=== PATIENT | male | born 1945 | race Caucasian/White ===

== ENCOUNTER 2023-02-11 21:22 | Inpatient (IN) | payer OTHER ==
[2023-02-11] MEDS ORDERED: RACEPINEPHRINE IH SOL 2.25% 11.25 MG/0.5 ML VIAL NEB ONE ×2 (21:38→22:02)
[2023-02-11] MEDS ORDERED: MAGNESIUM SULFATE IN WATER 2 GM/50 ML IVPB IVPB ONE ×2 (21:38→21:45)
[2023-02-11] MEDS ORDERED: RAPID SEQUENCE INTUBATION KIT NR ONE (21:41)
[2023-02-11 21:43] LABS: VENOUS BASE EXCESS -19.6 mmol/L (-2-2)
[2023-02-11] MEDS ORDERED: CEFTRIAXONE 1 GM in DEXTROSE 5%-WATER - 50 ML IVPB ONE (21:44)
[2023-02-11] MEDS ORDERED: CEFTRIAXONE 1 GM/50 ML BAG ONE ×2 (21:44→22:27)
[2023-02-11] MEDS ORDERED: AZITHROMYCIN IVPB 500 MG/250 ML BAG IVPB ONE ×2 (21:44→22:28)
[2023-02-11 21:59] LABS: HEMATOCRIT 24.4 % (35.4-49); HEMOGLOBIN 8.1 GM/dL (11.7-16.9); MCH 30.3 pg (25.7-33.7); MCHC 33.4 g/dl (32.0-35.9); MEAN CELL VOLUME 90.7 fl (80-96); MEAN PLT VOLUME 8.9 fl (7.5-11.1); PLATELET COUNT 229 10^3/uL (134-434); RBC 2.69 M/mm3 (4.00-5.60)
[2023-02-11] MEDS ORDERED: PROPOFOL 1,000,000 MCG/100 ML VIAL ONE (21:59)
[2023-02-11 22:01] LABS: WHITE BLOOD COUNT 0.9 K/mm3 (4.0-10.0)
[2023-02-11] MEDS ORDERED: MAGNESIUM SULF 50% (8.12 MEQ/2 ML-1 GM VIAL) IVPB ONE ×2 (22:02)
[2023-02-11 22:09] LABS: CHLORIDE 116 mmol/L (98-107); SODIUM 142 mmol/L (136-145)
[2023-02-11 22:11] LABS: CALCIUM 7.4 mg/dL (8.5-10.1)
[2023-02-11 22:12] LABS: ALBUMIN 2.4 g/dl (3.4-5.0); CO2 10 mmol/L (21-32)
[2023-02-11 22:15] LABS: SGOT/AST 101 U/L (15-37); SGPT/ALT 43 U/L (13-61)
[2023-02-11] MEDS ORDERED: PROPOFOL 1,000,000 MCG/100 ML VIAL IVPB SCH (22:15)
[2023-02-11] MEDS ORDERED: PROPOFOL 200 MG/20 ML VIAL IVPUSH ONE (22:15)
[2023-02-11 22:17] LABS: BILIRUBIN,TOTAL 0.6 mg/dL (0.2-1)
[2023-02-11 22:18] LABS: ALK PHOS 76 U/L (45-117)
[2023-02-11 22:34] LABS: ANION GAP 15 MMOL/L (8-16); CREATININE 7.6 mg/dL (0.55-1.3); GLUCOSE,RANDOM 32 mg/dL (74-106); N-TERMINAL BNP 82463.1 pg/ml (5-450); POTASSIUM 6.4 mmol/L (3.5-5.1)
[2023-02-11 22:36] LABS: HEMATOCRIT 22.5 % (35.4-49); HEMOGLOBIN 7.3 GM/dL (11.7-16.9); MCHC 32.4 g/dl (32.0-35.9); MEAN CELL VOLUME 92.5 fl (80-96); MEAN PLT VOLUME 8.3 fl (7.5-11.1); PLATELET COUNT 201 10^3/uL (134-434); RBC 2.44 M/mm3 (4.00-5.60); RDW 16.1 % (11.9-15.9)
[2023-02-11 22:42] LABS: WHITE BLOOD COUNT 0.7 K/mm3 (4.0-10.0)
[2023-02-11] MEDS ORDERED: DEXTROSE 5%-0.45% SALINE 1,000 ML IV SCH (23:00)
[2023-02-11] MEDS ORDERED: PIPERACILLIN/TAZOB 4.5 GM 4.5 GM in DEXTROSE 5%-WATER 100 ML IVPB ONE (23:02)
[2023-02-11] MEDS: PROPOFOL 1,000,000 MCG/100 ML VIAL IVPB SCH (23:10)
[2023-02-11 23:14] LABS: ARTERIAL BLD GAS O2 SATURATION 98.3 % (95-98); ARTERIAL BLOOD GAS BASE EXCESS -22.8 mmol/L (-2-2); ARTERIAL BLOOD GAS PO2 195.2 mmHg (80-100)
[2023-02-11 23:18] LABS: ALLENS TEST POSITIVE
[2023-02-11 23:19] LABS: VENT RATE 26
[2023-02-11 23:20] LABS: VENT MODE P5V
[2023-02-11 23:21] LABS: ARTERIAL BLOOD GAS pH 6.878 (7.350-7.450)
[2023-02-11] MEDS ORDERED: SODIUM BICARBONATE 8.4% 50 MEQ/50 ML DISP.SYRIN IVPUSH ONE ×2 (23:25→23:26)
[2023-02-11] MEDS ORDERED: SODIUM BICARBONATE 8.4% 50 MEQ/50 ML DISP.SYRIN ONE (23:27)
[2023-02-11] MEDS ORDERED: DEXTROSE 5%-WATER - 1,000 ML with SODIUM BICARBONATE 8.4% - 150 MEQ IV SCH (23:34)
[2023-02-11 23:46] LABS: CHLORIDE 116 mmol/L (98-107); POTASSIUM 5.8 mmol/L (3.5-5.1); SODIUM 140 mmol/L (136-145)
[2023-02-11 23:48] LABS: ANION GAP 13 MMOL/L (8-16); CO2 11 mmol/L (21-32); MAGNESIUM 2.5 mg/dL (1.8-2.4)
[2023-02-11 23:50] LABS: GLUCOSE,RANDOM 222 mg/dL (74-106)
[2023-02-11 23:52] LABS: SGOT/AST 88 U/L (15-37); SGPT/ALT 37 U/L (13-61)
[2023-02-11 23:53] LABS: CHOLESTEROL 81 mg/dL (50-200); PHOSPHOROUS 8.5 mg/dL (2.5-4.9); TOT PROT 5.1 g/dl (6.4-8.2)
[2023-02-11 23:54] LABS: LDL CHOLESTEROL (ONLY SJRH) 27 mg/dL (5-100)
[2023-02-11 23:55] LABS: BILIRUBIN,TOTAL 0.5 mg/dL (0.2-1)
[2023-02-11 23:56] LABS: ALK PHOS 67 U/L (45-117); HDL CHOLESTEROL 44 mg/dL (40-60)
[2023-02-12 00:04] LABS: BLOOD UREA NITROGEN 129.8 mg/dL (7-18); CALCIUM 6.9 mg/dL (8.5-10.1); CREATININE 7.5 mg/dL (0.55-1.3); LACTIC ACID 3.4 mmol/L (0.4-2.0)
[2023-02-12] MEDS ORDERED: SODIUM CHLORIDE 0.9% 500 ML INFUS.BAG IV ONE ×3 (00:43→09:53)
[2023-02-12] MEDS ORDERED: DEXTROSE 50%-WATER 25 GM/50 ML DISP.SYRIN IVPUSH ONE (01:00)
[2023-02-12] MEDS ORDERED: INSULIN REGULAR HUMAN 100 UNITS/ML *VIAL IVPUSH ONE (01:00)
[2023-02-12] MEDS ORDERED: SODIUM BICARBONATE 8.4% 50 MEQ/50 ML DISP.SYRIN IVPUSH ONE ×2 (01:00→10:15)
[2023-02-12] MEDS ORDERED: CALCIUM GLUCONATE 10% - 1,000 MG/10 ML VIAL IVPB ONE (01:00)
[2023-02-12] MEDS ORDERED: VANCOMYCIN 1 GM in D5W (PRE-DOCKED) 1,000 MG/250 ML (RESTRICTED TO ID ONLY IVPB ONE (01:44)
[2023-02-12] MEDS ORDERED: FENTANYL NS IVPB 500 MCG/100 ML BAG IVPB ONE (01:48)
[2023-02-12] MEDS ORDERED: PIPERACILLIN/TAZOB 2.25 GM 2.25 GM in DEXTROSE 5%-WATER - 50 ML IVPB SCH (02:00)
[2023-02-12] MEDS ORDERED: VANCOMYCIN/WATER FOR INJ (PEG) 1,000 MG/200 ML BAG IVPB ONE (02:00)
[2023-02-12 02:18] LABS: EPI CELLS 3 /uL (0-25.1); HYALINE CASTS 1 /uL (0-3.1); URINE APPEARANCE CLEAR; URINE BACTERIA 59 /uL (0-1359); URINE BILIRUBIN NEGATIVE (NEGATIVE); URINE COLOR YELLOW; URINE GLUCOSE (UA) NEGATIVE (NEGATIVE); URINE KETONE NEGATIVE (NEGATIVE); URINE LEUK ESTERASE NEGATIVE (NEGATIVE); URINE NITRITE NEGATIVE (NEGATIVE); URINE PROTEIN 1+ (NEGATIVE); URINE RBC 62 /uL (0-23.9); URINE UROBILINOGEN 0.2 mg/dL (0.2-1.0); URINE WBC 35 /uL (0-25.8)
[2023-02-12] MEDS: FENTANYL NS IVPB 500 MCG/100 ML BAG IVPB SCH ×4 (02:31→22:01)
[2023-02-12 02:47] LABS: BASO % 0.1 % (0-2.0); EOS % 0.3 % (0-4.5); HEMATOCRIT 22.6 % (35.4-49); HEMOGLOBIN 7.4 GM/dL (11.7-16.9); LYMPH % 14.3 % (8-40); MCH 30.3 pg (25.7-33.7); MCHC 32.5 g/dl (32.0-35.9); MEAN CELL VOLUME 93.2 fl (80-96); MEAN PLT VOLUME 8.6 fl (7.5-11.1); MONO % 0.9 % (3.8-10.2); NEUT % 84.4 % (42.8-82.8); PLATELET COUNT 210 10^3/uL (134-434); RBC 2.43 M/mm3 (4.00-5.60); RDW 16.5 % (11.9-15.9)
[2023-02-12 02:53] LABS: WHITE BLOOD COUNT 1.3 K/mm3 (4.0-10.0)
[2023-02-12 02:57] LABS: ARTERIAL BLD GAS O2 SATURATION 94.6 % (95-98); ARTERIAL BLOOD GAS BASE EXCESS -20.7 mmol/L (-2-2); ARTERIAL BLOOD GAS PO2 145.6 mmHg (80-100)
[2023-02-12 02:59] LABS: ALLENS TEST POSITIVE
[2023-02-12 03:00] LABS: VENT MODE PSV
[2023-02-12 03:01] LABS: VENT RATE 29
[2023-02-12] MEDS: NOREPINEPHRINE BITARTRATE/D5W 8 MG/250 ML BAG IVPB SCH ×3 (03:05→21:09)
[2023-02-12 03:15] LABS: ARTERIAL BLOOD GAS pH < 6.717 (7.350-7.450)
[2023-02-12] MEDS ORDERED: SODIUM BICARBONATE 8.4% 50 MEQ/50 ML VIAL IVPUSH ONE ×2 (03:32)
[2023-02-12] MEDS ORDERED: SODIUM BICARBONATE 8.4% 50 MEQ/50 ML DISP.SYRIN ONE (03:32)
[2023-02-12 03:33] LABS: LACTIC ACID 3.4 mmol/L (0.4-2.0)
[2023-02-12] MEDS: ALBUTEROL SO4 0.083% IH SOL 2.5 MG/3 ML VIAL.NEB. NEB SCH ×5 (03:34→20:33)
[2023-02-12 03:55] LABS: ANISOCYTOSIS 2+; CORRECTED WBC 1.16 K/mm3; MACROCYTOSIS 0; OVALOCYTE 2+; TOXIC GRANULATION 2+
[2023-02-12 04:50] LABS: CHLORIDE 114 mmol/L (98-107); POTASSIUM 5.4 mmol/L (3.5-5.1); SODIUM 145 mmol/L (136-145)
[2023-02-12 04:52] LABS: ALBUMIN 1.7 g/dl (3.4-5.0)
[2023-02-12 04:53] LABS: ANION GAP 14 MMOL/L (8-16); CO2 17 mmol/L (21-32); GLUCOSE,RANDOM 154 mg/dL (74-106); MAGNESIUM 2.4 mg/dL (1.8-2.4)
[2023-02-12 04:56] LABS: SGOT/AST 114 U/L (15-37); SGPT/ALT 41 U/L (13-61)
[2023-02-12 04:57] LABS: TOT PROT 4.4 g/dl (6.4-8.2)
[2023-02-12 04:58] LABS: BILIRUBIN,TOTAL 0.5 mg/dL (0.2-1)
[2023-02-12 04:59] LABS: ALK PHOS 61 U/L (45-117)
[2023-02-12 05:07] LABS: ARTERIAL BLD GAS O2 SATURATION 98.9 % (95-98); ARTERIAL BLOOD GAS BASE EXCESS -14.9 mmol/L (-2-2); ARTERIAL BLOOD GAS PO2 209.6 mmHg (80-100)
[2023-02-12 05:09] LABS: ALLENS TEST POSITIVE
[2023-02-12 05:10] LABS: VENT MODE V-A/C; VENT RATE 35
[2023-02-12 05:20] LABS: BLOOD UREA NITROGEN 119.6 mg/dL (7-18); CALCIUM 6.9 mg/dL (8.5-10.1); CREATININE 7.9 mg/dL (0.55-1.3)
[2023-02-12 05:35] LABS: PHOSPHOROUS > 9.0 mg/dL (2.5-4.9)
[2023-02-12] MEDS ORDERED: DEXTROSE 50%-WATER 25 GM/50 ML DISP.SYRIN ONE ×2 (06:03→08:46)
[2023-02-12 06:17] LABS: ARTERIAL BLOOD GAS pH 7.039 (7.350-7.450)
[2023-02-12] MEDS ORDERED: DEXTROSE 50%-WATER - 25 GM/50 ML VIAL IVPUSH ONE ×2 (06:22→08:27)
[2023-02-12] MEDS: HEPARIN NA (PORCINE) 5,000 UNITS/ML 1ML VIAL SQ SCH ×3 (06:46→21:08)
[2023-02-12 07:24] LABS: INR 1.51 (0.83-1.09); PROTHROMBIN TIME (PATIENT) 17.4 SEC (9.7-13.0)
[2023-02-12 07:27] LABS: ACTIVATED PTT 32.5 SECONDS (25.2-36.5)
[2023-02-12 07:41] LABS: CHLORIDE 112 mmol/L (98-107); POTASSIUM 5.2 mmol/L (3.5-5.1); SODIUM 146 mmol/L (136-145)
[2023-02-12 07:43] LABS: ALBUMIN 1.7 g/dl (3.4-5.0)
[2023-02-12 07:44] LABS: ANION GAP 14 MMOL/L (8-16); CO2 20 mmol/L (21-32); GLUCOSE,RANDOM 50 mg/dL (74-106)
[2023-02-12 07:46] LABS: SGOT/AST 236 U/L (15-37)
[2023-02-12 07:47] LABS: SGPT/ALT 78 U/L (13-61)
[2023-02-12 07:48] LABS: BILIRUBIN,TOTAL 0.6 mg/dL (0.2-1); TOT PROT 4.5 g/dl (6.4-8.2)
[2023-02-12 07:49] LABS: ALK PHOS 66 U/L (45-117)
[2023-02-12 08:03] LABS: BLOOD UREA NITROGEN 118.6 mg/dL (7-18); CALCIUM 6.5 mg/dL (8.5-10.1); CREATININE 7.7 mg/dL (0.55-1.3); LACTIC ACID 4.7 mmol/L (0.4-2.0)
[2023-02-12 08:07] LABS: HEMATOCRIT 20.7 % (35.4-49); MCH 30.6 pg (25.7-33.7); MCHC 33.6 g/dl (32.0-35.9); MEAN PLT VOLUME 8.8 fl (7.5-11.1); PLATELET COUNT 147 10^3/uL (134-434); RBC 2.27 M/mm3 (4.00-5.60); RDW 15.8 % (11.9-15.9)
[2023-02-12 08:10] LABS: HEMOGLOBIN 6.9 GM/dL (11.7-16.9); WHITE BLOOD COUNT 0.9 K/mm3 (4.0-10.0)
[2023-02-12] MEDS: DEXTROSE 5%-WATER - 1,000 ML with SODIUM BICARBONATE 8.4% - 150 MEQ IV SCH ×3 (08:40→22:03)
[2023-02-12 10:01] LABS: ANISOCYTOSIS 0; MACROCYTOSIS 1+; ROULEAU 2+
[2023-02-12] MEDS: MUPIROCIN 2% TOPICAL OINTMENT FOR DECOLONIZATION NS SCH ×2 (10:04→21:07)
[2023-02-12] MEDS: SODIUM BICARBONATE 8.4% 50 MEQ/50 ML DISP.SYRIN IVPUSH SCH ×3 (10:05→21:04)
[2023-02-12] MEDS: PIPERACILLIN/TAZOB 2.25 GM 2.25 GM in DEXTROSE 5%-WATER - 50 ML IVPB SCH ×2 (10:06→18:49)
[2023-02-12] MEDS: PANTOPRAZOLE SODIUM 40 MG VIAL IVPUSH SCH (10:06)
[2023-02-12] MEDS: SODIUM CHLORIDE 1,000 ML IV SCH ×2 (10:37→11:50)
[2023-02-12] MEDS: PROPOFOL 1,000,000 MCG/100 ML VIAL IVPB SCH ×2 (10:47→16:59)
[2023-02-12 12:02] LABS: ALLENS TEST POSITIVE; ARTERIAL BLD GAS O2 SATURATION 99.4 % (95-98); ARTERIAL BLOOD GAS BASE EXCESS -5.1 mmol/L (-2-2); ARTERIAL BLOOD GAS PO2 224.8 mmHg (80-100)
[2023-02-12 12:03] LABS: VENT MODE A/C; VENT RATE 35%
[2023-02-12] MEDS: AZITHROMYCIN IVPB 500 MG/250 ML BAG IVPB SCH (13:40)
[2023-02-12] MEDS: CHLORHEXIDINE GLUCONATE 4% CLEANSER FOR DECOLONIZATION TP SCH (21:07)
[2023-02-12 21:30] LABS: ARTERIAL BLD GAS O2 SATURATION 97.5 % (95-98); ARTERIAL BLOOD GAS BASE EXCESS -2.8 mmol/L (-2-2); ARTERIAL BLOOD GAS PO2 119.3 mmHg (80-100); ARTERIAL BLOOD GAS pH 7.224 (7.350-7.450)
[2023-02-12 21:42] LABS: ALLENS TEST POSITIVE; VENT MODE A/C; VENT RATE 35
[2023-02-13] MEDS: ALBUTEROL SO4 0.083% IH SOL 2.5 MG/3 ML VIAL.NEB. NEB SCH ×6 (00:05→20:40)
[2023-02-13] MEDS: PIPERACILLIN/TAZOB 2.25 GM 2.25 GM in DEXTROSE 5%-WATER - 50 ML IVPB SCH ×3 (02:08→17:13)
[2023-02-13] MEDS: FENTANYL NS IVPB 500 MCG/100 ML BAG IVPB SCH ×2 (03:31→06:07)
[2023-02-13] MEDS: SODIUM BICARBONATE 8.4% 50 MEQ/50 ML DISP.SYRIN IVPUSH SCH ×2 (03:31→11:02)
[2023-02-13] MEDS: HEPARIN NA (PORCINE) 5,000 UNITS/ML 1ML VIAL SQ SCH ×3 (06:07→21:22)
[2023-02-13 06:14] LABS: ALLENS TEST POSITIVE; ARTERIAL BLD GAS O2 SATURATION 97.5 % (95-98); ARTERIAL BLOOD GAS BASE EXCESS 1.9 mmol/L (-2-2); ARTERIAL BLOOD GAS pH 7.289 (7.350-7.450)
[2023-02-13 06:15] LABS: VENT MODE A/C; VENT RATE 35
[2023-02-13] MEDS: DEXTROSE 5%-WATER - 1,000 ML with SODIUM BICARBONATE 8.4% - 150 MEQ IV SCH ×4 (06:16→12:10)
[2023-02-13] MEDS: PROPOFOL 1,000,000 MCG/100 ML VIAL IVPB SCH ×2 (06:16→12:09)
[2023-02-13] MEDS: NOREPINEPHRINE BITARTRATE/D5W 8 MG/250 ML BAG IVPB SCH (06:16)
[2023-02-13 07:03] LABS: HEMATOCRIT 20.2 % (35.4-49); HEMOGLOBIN 7.1 GM/dL (11.7-16.9); MCH 30.7 pg (25.7-33.7); MCHC 35.2 g/dl (32.0-35.9); MEAN CELL VOLUME 87.2 fl (80-96); MEAN PLT VOLUME 9.2 fl (7.5-11.1); PLATELET COUNT 72 10^3/uL (134-434); RBC 2.31 M/mm3 (4.00-5.60); RDW 15.6 % (11.9-15.9); WHITE BLOOD COUNT 9.6 K/mm3 (4.0-10.0)
[2023-02-13 07:25] LABS: CHLORIDE 101 mmol/L (98-107); POTASSIUM 4.6 mmol/L (3.5-5.1); SODIUM 144 mmol/L (136-145)
[2023-02-13 07:28] LABS: ALBUMIN 1.4 g/dl (3.4-5.0); ANION GAP 10 MMOL/L (8-16); CO2 33 mmol/L (21-32); GLUCOSE,RANDOM 151 mg/dL (74-106); MAGNESIUM 1.9 mg/dL (1.8-2.4)
[2023-02-13 07:31] LABS: CREATININE 7.3 mg/dL (0.55-1.3); SGOT/AST 211 U/L (15-37); SGPT/ALT 88 U/L (13-61)
[2023-02-13 07:32] LABS: BILIRUBIN,TOTAL 0.5 mg/dL (0.2-1)
[2023-02-13 07:33] LABS: TOT PROT 4.3 g/dl (6.4-8.2)
[2023-02-13 07:34] LABS: ALK PHOS 41 U/L (45-117)
[2023-02-13 08:16] LABS: BLOOD UREA NITROGEN 115.5 mg/dL (7-18); CALCIUM 6.3 mg/dL (8.5-10.1); PHOSPHOROUS 9.9 mg/dL (2.5-4.9)
[2023-02-13 08:46] LABS: ANISOCYTOSIS 1+; MACROCYTOSIS 0
[2023-02-13] MEDS: PANTOPRAZOLE SODIUM 40 MG VIAL IVPUSH SCH (11:02)
[2023-02-13] MEDS: MUPIROCIN 2% TOPICAL OINTMENT FOR DECOLONIZATION NS SCH ×2 (11:03→21:23)
[2023-02-13] MEDS: AZITHROMYCIN IVPB 500 MG/250 ML BAG IVPB SCH (11:03)
[2023-02-13 12:30] LABS: INR 1.4 (0.83-1.09); PROTHROMBIN TIME (PATIENT) 16.2 SEC (9.7-13.0)
[2023-02-13 12:33] LABS: ACTIVATED PTT 30.7 SECONDS (25.2-36.5)
[2023-02-13 15:27] VITALS: BMI 25.7
[2023-02-13] MEDS: SODIUM BICARBONATE 8.4% - 150 MEQ in DEXTROSE 5%-WATER - 1,000 ML IV SCH (17:13)
[2023-02-13] MEDS: CHLORHEXIDINE GLUCONATE 4% CLEANSER FOR DECOLONIZATION TP SCH (21:23)
[2023-02-14] MEDS: ALBUTEROL SO4 0.083% IH SOL 2.5 MG/3 ML VIAL.NEB. NEB SCH ×4 (00:08→10:59)
[2023-02-14] MEDS: PIPERACILLIN/TAZOB 2.25 GM 2.25 GM in DEXTROSE 5%-WATER - 50 ML IVPB SCH ×2 (01:11→10:16)
[2023-02-14] MEDS: HEPARIN NA (PORCINE) 5,000 UNITS/ML 1ML VIAL SQ SCH (06:22)
[2023-02-14] MEDS: PROPOFOL 1,000,000 MCG/100 ML VIAL IVPB SCH (06:23)
[2023-02-14] MEDS: FENTANYL NS IVPB 500 MCG/100 ML BAG IVPB SCH ×3 (06:23→07:01)
[2023-02-14] MEDS: SODIUM BICARBONATE 8.4% - 150 MEQ in DEXTROSE 5%-WATER - 1,000 ML IV SCH ×2 (06:24)
[2023-02-14] MEDS: NOREPINEPHRINE BITARTRATE/D5W 8 MG/250 ML BAG IVPB SCH (06:25)
[2023-02-14 06:56] LABS: HEMATOCRIT 18.3 % (35.4-49); MCH 30.1 pg (25.7-33.7); MCHC 34.4 g/dl (32.0-35.9); MEAN CELL VOLUME 87.5 fl (80-96); MEAN PLT VOLUME 9.6 fl (7.5-11.1); PLATELET COUNT 52 10^3/uL (134-434); RBC 2.09 M/mm3 (4.00-5.60); RDW 15.7 % (11.9-15.9); WHITE BLOOD COUNT 14.5 K/mm3 (4.0-10.0)
[2023-02-14 07:03] LABS: HEMOGLOBIN 6.3 GM/dL (11.7-16.9)
[2023-02-14 07:18] LABS: CHLORIDE 91 mmol/L (98-107); POTASSIUM 4.5 mmol/L (3.5-5.1); SODIUM 140 mmol/L (136-145)
[2023-02-14 07:22] LABS: ALBUMIN 1.4 g/dl (3.4-5.0); ANION GAP 9 MMOL/L (8-16); CO2 41 mmol/L (21-32); GLUCOSE,RANDOM 145 mg/dL (74-106); MAGNESIUM 2.2 mg/dL (1.8-2.4)
[2023-02-14 07:25] LABS: CREATININE 7.3 mg/dL (0.55-1.3); SGOT/AST 111 U/L (15-37)
[2023-02-14 07:26] LABS: SGPT/ALT 69 U/L (13-61)
[2023-02-14 07:27] LABS: BILIRUBIN,TOTAL 0.7 mg/dL (0.2-1); TOT PROT 4.3 g/dl (6.4-8.2)
[2023-02-14 07:33] LABS: ALK PHOS 77 U/L (45-117); BLOOD UREA NITROGEN 118.8 mg/dL (7-18); CALCIUM 5.5 mg/dL (8.5-10.1)
[2023-02-14 07:48] LABS: PHOSPHOROUS 9.6 mg/dL (2.5-4.9)
[2023-02-14 09:09] LABS: ANISOCYTOSIS 0; MACROCYTOSIS 0
[2023-02-14] MEDS: PANTOPRAZOLE SODIUM 40 MG VIAL IVPUSH SCH (10:16)
[2023-02-14] MEDS: AZITHROMYCIN IVPB 500 MG/250 ML BAG IVPB SCH (10:16)
[2023-02-14] MEDS: MUPIROCIN 2% TOPICAL OINTMENT FOR DECOLONIZATION NS SCH ×2 (10:17→21:21)
[2023-02-14] MEDS ORDERED: CALCIUM GLUCONATE 10% - 1,000 MG/10 ML VIAL IVPUSH ONE (11:14)
[2023-02-14] MEDS ORDERED: ALBUTEROL SO4 0.083% IH SOL 2.5 MG/3 ML VIAL.NEB. NEB PRN (12:40)
[2023-02-14] MEDS: ACETAMINOPHEN 1000 MG/100 ML BAG IVPB PRN ×2 (12:56→21:25)
[2023-02-14 14:57] LABS: HEMATOCRIT 22.1 % (35.4-49); HEMOGLOBIN 7.6 GM/dL (11.7-16.9); MCH 29.6 pg (25.7-33.7); MCHC 34.3 g/dl (32.0-35.9); MEAN CELL VOLUME 86.4 fl (80-96); MEAN PLT VOLUME 10.1 fl (7.5-11.1); PLATELET COUNT 47 10^3/uL (134-434); RBC 2.55 M/mm3 (4.00-5.60); RDW 16.1 % (11.9-15.9); WHITE BLOOD COUNT 15.9 K/mm3 (4.0-10.0)
[2023-02-14] MEDS: ALBUTEROL SO4 2.5/IPRATROPIUM 0.5 INH SOL 3 ML VIAL.NEB. NEB SCH ×2 (15:00→20:30)
[2023-02-14] MEDS: CEFTRIAXONE 2 GM in DEXTROSE 5%-WATER 100 ML IVPB SCH (15:34)
[2023-02-14] MEDS ORDERED: ALBUTEROL SO4 0.083% IH SOL 2.5 MG/3 ML VIAL.NEB. NEB SCH (16:00)
[2023-02-14 18:01] LABS: ANISOCYTOSIS 2+; MACROCYTOSIS 0; OVALOCYTE 1+; TOXIC GRANULATION 1+
[2023-02-14 21:08] LABS: ANTIGLOMERULAR BASEMENT MEN.AB <0.2 units (0.0-0.9)
[2023-02-14] MEDS: CHLORHEXIDINE GLUCONATE 4% CLEANSER FOR DECOLONIZATION TP SCH (21:21)
[2023-02-15 07:22] LABS: HEMATOCRIT 23.5 % (35.4-49); HEMOGLOBIN 8.1 GM/dL (11.7-16.9); MCHC 34.6 g/dl (32.0-35.9); MEAN CELL VOLUME 86.7 fl (80-96); MEAN PLT VOLUME 9.8 fl (7.5-11.1); PLATELET COUNT 45 10^3/uL (134-434); RBC 2.71 M/mm3 (4.00-5.60); RDW 16.4 % (11.9-15.9); WHITE BLOOD COUNT 16.1 K/mm3 (4.0-10.0)
[2023-02-15 07:52] LABS: CHLORIDE 92 mmol/L (98-107); POTASSIUM 4.5 mmol/L (3.5-5.1); SODIUM 143 mmol/L (136-145)
[2023-02-15 07:55] LABS: ANION GAP 15 MMOL/L (8-16); CO2 36 mmol/L (21-32); GLUCOSE,RANDOM 74 mg/dL (74-106); MAGNESIUM 2.1 mg/dL (1.8-2.4)
[2023-02-15 07:59] LABS: ALBUMIN 1.5 g/dl (3.4-5.0); SGOT/AST 80 U/L (15-37); SGPT/ALT 58 U/L (13-61)
[2023-02-15 08:01] LABS: BILIRUBIN,TOTAL 0.9 mg/dL (0.2-1); TOT PROT 4.7 g/dl (6.4-8.2)
[2023-02-15] MEDS: ALBUTEROL SO4 2.5/IPRATROPIUM 0.5 INH SOL 3 ML VIAL.NEB. NEB SCH ×4 (08:26→20:20)
[2023-02-15 08:32] LABS: ALK PHOS 174 U/L (45-117); BLOOD UREA NITROGEN 133.4 mg/dL (7-18); CALCIUM 5.8 mg/dL (8.5-10.1); CREATININE 7.9 mg/dL (0.55-1.3); PHOSPHOROUS 8.8 mg/dL (2.5-4.9)
[2023-02-15] MEDS ORDERED: CALCIUM GLUCONATE 10% - 1,000 MG/10 ML VIAL IVPUSH ONE ×2 (08:36→13:54)
[2023-02-15 09:07] LABS: ANISOCYTOSIS 0; MACROCYTOSIS 0
[2023-02-15] MEDS: TAMSULOSIN HCL 0.4 MG CAP PO SCH ×2 (09:41→22:12)
[2023-02-15] MEDS: FINASTERIDE 5 MG TABLET (FP) PO SCH (09:41)
[2023-02-15] MEDS: CEFTRIAXONE 2 GM in DEXTROSE 5%-WATER 100 ML IVPB SCH (09:42)
[2023-02-15] MEDS: AZITHROMYCIN IVPB 500 MG/250 ML BAG IVPB SCH (09:42)
[2023-02-15] MEDS: PANTOPRAZOLE SODIUM 40 MG VIAL IVPUSH SCH (09:42)
[2023-02-15] MEDS ORDERED: amLODIPine BESYLATE 5 MG TABLET (FP) PO SCH (11:05)
[2023-02-15] MEDS ORDERED: amLODIPine BESYLATE 5 MG TABLET (FP) PO ONE (11:17)
[2023-02-15] MEDS: MUPIROCIN 2% TOPICAL OINTMENT FOR DECOLONIZATION NS SCH ×2 (11:26→22:15)
[2023-02-15] MEDS ORDERED: CALCIUM GLUCONATE 10% - 1,000 MG/10 ML VIAL IVPB ONE (12:20)
[2023-02-15] MEDS ORDERED: CALCIUM CHLORIDE 10% 1 GM/10 ML *VIAL IVPUSH ONE (12:20)
[2023-02-15 16:08] LABS: ATYPICAL pANCA <1:20 titer (Neg:<1:20); C-ANCA <1:20 titer (Neg:<1:20)
[2023-02-15] MEDS: CHLORHEXIDINE GLUCONATE 4% CLEANSER FOR DECOLONIZATION TP SCH (22:15)
[2023-02-16] MEDS: ALBUTEROL SO4 2.5/IPRATROPIUM 0.5 INH SOL 3 ML VIAL.NEB. NEB SCH ×4 (07:20→21:39)
[2023-02-16 07:44] LABS: HEMATOCRIT 23.9 % (35.4-49); MCH 28.9 pg (25.7-33.7); MCHC 33.4 g/dl (32.0-35.9); MEAN CELL VOLUME 86.6 fl (80-96); MEAN PLT VOLUME 9.8 fl (7.5-11.1); PLATELET COUNT 47 10^3/uL (134-434); RBC 2.76 M/mm3 (4.00-5.60); RDW 15.7 % (11.9-15.9); WHITE BLOOD COUNT 10.1 K/mm3 (4.0-10.0)
[2023-02-16 08:08] LABS: CHLORIDE 91 mmol/L (98-107); POTASSIUM 4.1 mmol/L (3.5-5.1); SODIUM 138 mmol/L (136-145)
[2023-02-16 08:10] LABS: ALBUMIN 1.5 g/dl (3.4-5.0); ANION GAP 14 MMOL/L (8-16); CO2 33 mmol/L (21-32); GLUCOSE,RANDOM 86 mg/dL (74-106); MAGNESIUM 2.3 mg/dL (1.8-2.4)
[2023-02-16 08:14] LABS: SGOT/AST 55 U/L (15-37); SGPT/ALT 53 U/L (13-61)
[2023-02-16 08:16] LABS: BILIRUBIN,TOTAL 0.8 mg/dL (0.2-1); TOT PROT 4.7 g/dl (6.4-8.2)
[2023-02-16 08:17] LABS: ALK PHOS 166 U/L (45-117)
[2023-02-16 08:31] LABS: BLOOD UREA NITROGEN 144.8 mg/dL (7-18); CALCIUM 6.7 mg/dL (8.5-10.1)
[2023-02-16 08:38] LABS: PHOSPHOROUS 9.4 mg/dL (2.5-4.9)
[2023-02-16 09:06] LABS: ANISOCYTOSIS 0; MACROCYTOSIS 0
[2023-02-16] MEDS: CEFTRIAXONE 2 GM in DEXTROSE 5%-WATER 100 ML IVPB SCH (09:06)
[2023-02-16] MEDS: TAMSULOSIN HCL 0.4 MG CAP PO SCH ×2 (09:22→21:20)
[2023-02-16] MEDS: PANTOPRAZOLE SODIUM 40 MG VIAL IVPUSH SCH (09:22)
[2023-02-16] MEDS: amLODIPine BESYLATE 5 MG TABLET (FP) PO SCH (09:22)
[2023-02-16] MEDS: FINASTERIDE 5 MG TABLET (FP) PO SCH (09:23)
[2023-02-16] MEDS ORDERED: amLODIPine BESYLATE 5 MG TABLET (FP) PO SCH (10:00)
[2023-02-16] MEDS: MUPIROCIN 2% TOPICAL OINTMENT FOR DECOLONIZATION NS SCH ×2 (10:35→21:19)
[2023-02-16 12:51] LABS: EPI CELLS 3 /uL (0-25.1); HYALINE CASTS 36 /uL (0-3.1); PH,URINE 8.5 (5.0-8.0); URINE APPEARANCE TURBID; URINE BILIRUBIN 1+ (NEGATIVE); URINE COLOR RED; URINE GLUCOSE (UA) NEGATIVE (NEGATIVE); URINE KETONE NEGATIVE (NEGATIVE); URINE LEUK ESTERASE 2+ (NEGATIVE); URINE NITRITE POSITIVE (NEGATIVE); URINE PROTEIN 2+ (NEGATIVE); URINE RBC 18537 /uL (0-23.9); URINE UROBILINOGEN 0.2 mg/dL (0.2-1.0); URINE WBC 31 /uL (0-25.8)
[2023-02-16] MEDS: CHLORHEXIDINE GLUCONATE 4% CLEANSER FOR DECOLONIZATION TP SCH (21:20)
[2023-02-17] MEDS: ALBUTEROL SO4 2.5/IPRATROPIUM 0.5 INH SOL 3 ML VIAL.NEB. NEB SCH ×4 (07:20→20:51)
[2023-02-17 07:33] LABS: MAGNESIUM 2.2 mg/dL (1.8-2.4)
[2023-02-17 07:45] LABS: PHOSPHOROUS 10.8 mg/dL (2.5-4.9)
[2023-02-17 09:15] LABS: CHLORIDE 94 mmol/L (98-107); POTASSIUM 3.9 mmol/L (3.5-5.1); SODIUM 140 mmol/L (136-145)
[2023-02-17 09:16] LABS: ANION GAP 17 MMOL/L (8-16); CO2 28 mmol/L (21-32); GLUCOSE,RANDOM 64 mg/dL (74-106)
[2023-02-17] MEDS: TAMSULOSIN HCL 0.4 MG CAP PO SCH ×2 (09:27→21:19)
[2023-02-17] MEDS: FINASTERIDE 5 MG TABLET (FP) PO SCH (09:27)
[2023-02-17] MEDS: amLODIPine BESYLATE 5 MG TABLET (FP) PO SCH (09:27)
[2023-02-17] MEDS: PANTOPRAZOLE SODIUM 40 MG VIAL IVPUSH SCH (09:27)
[2023-02-17 09:28] LABS: BLOOD UREA NITROGEN 151.6 mg/dL (7-18); CALCIUM 6.7 mg/dL (8.5-10.1); CREATININE 8.2 mg/dL (0.55-1.3)
[2023-02-17] MEDS: CEFTRIAXONE 2 GM in DEXTROSE 5%-WATER 100 ML IVPB SCH (09:28)
[2023-02-17 11:28] LABS: HEMATOCRIT 23.1 % (35.4-49); HEMOGLOBIN 7.8 GM/dL (11.7-16.9); MCHC 33.8 g/dl (32.0-35.9); MEAN CELL VOLUME 88.6 fl (80-96); MEAN PLT VOLUME 9.3 fl (7.5-11.1); PLATELET COUNT 64 10^3/uL (134-434); RBC 2.61 M/mm3 (4.00-5.60); RDW 15.2 % (11.9-15.9); WHITE BLOOD COUNT 9.2 K/mm3 (4.0-10.0)
[2023-02-17] MEDS: CHLORHEXIDINE GLUCONATE 4% CLEANSER FOR DECOLONIZATION TP SCH (21:19)
[2023-02-18 07:04] LABS: HEMATOCRIT 22.8 % (35.4-49); HEMOGLOBIN 7.6 GM/dL (11.7-16.9); MCH 29.4 pg (25.7-33.7); MCHC 33.2 g/dl (32.0-35.9); MEAN CELL VOLUME 88.4 fl (80-96); MEAN PLT VOLUME 9.5 fl (7.5-11.1); PLATELET COUNT 85 10^3/uL (134-434); RBC 2.58 M/mm3 (4.00-5.60); WHITE BLOOD COUNT 11.7 K/mm3 (4.0-10.0)
[2023-02-18 07:19] LABS: CHLORIDE 96 mmol/L (98-107); POTASSIUM 3.4 mmol/L (3.5-5.1); SODIUM 141 mmol/L (136-145)
[2023-02-18] MEDS: ALBUTEROL SO4 2.5/IPRATROPIUM 0.5 INH SOL 3 ML VIAL.NEB. NEB SCH ×4 (07:20→20:40)
[2023-02-18 07:25] LABS: ANION GAP 16 MMOL/L (8-16); CO2 30 mmol/L (21-32); GLUCOSE,RANDOM 79 mg/dL (74-106); MAGNESIUM 2.1 mg/dL (1.8-2.4)
[2023-02-18 07:50] LABS: CALCIUM 6.1 mg/dL (8.5-10.1); CREATININE 8.1 mg/dL (0.55-1.3)
[2023-02-18 08:31] LABS: BLOOD UREA NITROGEN 155.9 mg/dL (7-18)
[2023-02-18 09:00] LABS: PHOSPHOROUS 10.5 mg/dL (2.5-4.9)
[2023-02-18] MEDS: CEFTRIAXONE 2 GM in DEXTROSE 5%-WATER 100 ML IVPB SCH (09:44)
[2023-02-18] MEDS: PANTOPRAZOLE SODIUM 40 MG VIAL IVPUSH SCH (09:44)
[2023-02-18] MEDS: TAMSULOSIN HCL 0.4 MG CAP PO SCH ×2 (09:45→21:04)
[2023-02-18] MEDS ORDERED: KCL 10 MEQ IVPB 10 MEQ/100 ML INFUS.BAG IVPB SCH (09:45)
[2023-02-18] MEDS: amLODIPine BESYLATE 5 MG TABLET (FP) PO SCH (09:45)
[2023-02-18] MEDS: FINASTERIDE 5 MG TABLET (FP) PO SCH (09:45)
[2023-02-18 10:12] LABS: ANISOCYTOSIS 1+; MACROCYTOSIS 0; ROULEAU 1+
[2023-02-18] MEDS ORDERED: HEPARIN NA (PORCINE) 5,000 UNITS/ML 1ML VIAL SQ SCH (14:00)
[2023-02-18] MEDS: CHLORHEXIDINE GLUCONATE 4% CLEANSER FOR DECOLONIZATION TP SCH (21:09)
[2023-02-19] MEDS: ALBUTEROL SO4 2.5/IPRATROPIUM 0.5 INH SOL 3 ML VIAL.NEB. NEB SCH ×4 (07:20→20:35)
[2023-02-19 07:27] LABS: VENOUS BASE EXCESS 4.6 mmol/L (-2-2); VENOUS O2 SATURATION 78.8 % (70-80); VENOUS PCO2 35.7 mmHg (38-52); VENOUS PH 7.509 (7.310-7.410)
[2023-02-19 07:35] LABS: HEMATOCRIT 24.8 % (35.4-49); HEMOGLOBIN 8.4 GM/dL (11.7-16.9); MCH 29.9 pg (25.7-33.7); MCHC 33.9 g/dl (32.0-35.9); MEAN CELL VOLUME 88.3 fl (80-96); MEAN PLT VOLUME 10.5 fl (7.5-11.1); PLATELET COUNT 120 10^3/uL (134-434); RBC 2.81 M/mm3 (4.00-5.60); WHITE BLOOD COUNT 13.4 K/mm3 (4.0-10.0)
[2023-02-19 07:52] LABS: CHLORIDE 95 mmol/L (98-107); POTASSIUM 3.4 mmol/L (3.5-5.1); SODIUM 140 mmol/L (136-145)
[2023-02-19 07:59] LABS: SGPT/ALT 42 U/L (13-61)
[2023-02-19 08:00] LABS: ALBUMIN 1.4 g/dl (3.4-5.0); ANION GAP 15 MMOL/L (8-16); CO2 30 mmol/L (21-32); GLUCOSE,RANDOM 76 mg/dL (74-106)
[2023-02-19 08:01] LABS: BILIRUBIN,TOTAL 0.5 mg/dL (0.2-1); TOT PROT 5.1 g/dl (6.4-8.2)
[2023-02-19 08:03] LABS: ALK PHOS 169 U/L (45-117); SGOT/AST 41 U/L (15-37)
[2023-02-19 09:05] LABS: BLOOD UREA NITROGEN 151.3 mg/dL (7-18); PHOSPHOROUS 10.6 mg/dL (2.5-4.9)
[2023-02-19 09:09] LABS: CALCIUM 6.5 mg/dL (8.5-10.1)
[2023-02-19 09:32] LABS: ANISOCYTOSIS 0; HELMET CELLS 0; HOWELL-JOLLY BODIES 0; MACROCYTOSIS 0; OVALOCYTE 0; ROULEAU 0; SICKELED CELLS 0; TARGET CELLS 0; TEAR DROP CELLS 0; TOXIC GRANULATION 0
[2023-02-19] MEDS: amLODIPine BESYLATE 5 MG TABLET (FP) PO SCH (09:38)
[2023-02-19] MEDS: FINASTERIDE 5 MG TABLET (FP) PO SCH (09:38)
[2023-02-19] MEDS: TAMSULOSIN HCL 0.4 MG CAP PO SCH ×2 (09:38→21:24)
[2023-02-19] MEDS: CEFTRIAXONE 2 GM in DEXTROSE 5%-WATER 100 ML IVPB SCH (09:38)
[2023-02-19] MEDS: PANTOPRAZOLE SODIUM 40 MG VIAL IVPUSH SCH (09:38)
[2023-02-19] MEDS ORDERED: POTASSIUM CHLORIDE ORAL LIQUID 20 MEQ/15 ML PO ONE (17:53)
[2023-02-19] MEDS ORDERED: SODIUM CHLORIDE 0.45% 1,000 ML IV SCH (18:00)
[2023-02-19] MEDS: CALCIUM ACETATE 667 MG CAPSULE (FP) PO SCH (18:38)
[2023-02-19] MEDS: CHLORHEXIDINE GLUCONATE 4% CLEANSER FOR DECOLONIZATION TP SCH (21:24)
[2023-02-20 07:24] LABS: HEMOGLOBIN 8.1 GM/dL (11.7-16.9); MCH 30.2 pg (25.7-33.7); MCHC 33.8 g/dl (32.0-35.9); MEAN CELL VOLUME 89.1 fl (80-96); MEAN PLT VOLUME 10.5 fl (7.5-11.1); PLATELET COUNT 145 10^3/uL (134-434); RBC 2.69 M/mm3 (4.00-5.60); RDW 15.1 % (11.9-15.9); WHITE BLOOD COUNT 12.2 K/mm3 (4.0-10.0)
[2023-02-20 07:41] LABS: CHLORIDE 98 mmol/L (98-107); POTASSIUM 3.9 mmol/L (3.5-5.1); SODIUM 140 mmol/L (136-145)
[2023-02-20 07:46] LABS: ALBUMIN 1.5 g/dl (3.4-5.0); ANION GAP 13 MMOL/L (8-16); CO2 29 mmol/L (21-32); GLUCOSE,RANDOM 72 mg/dL (74-106)
[2023-02-20 07:49] LABS: SGOT/AST 36 U/L (15-37)
[2023-02-20 07:50] LABS: SGPT/ALT 39 U/L (13-61)
[2023-02-20 07:51] LABS: BILIRUBIN,TOTAL 0.6 mg/dL (0.2-1); TOT PROT 5.5 g/dl (6.4-8.2)
[2023-02-20 07:52] LABS: ALK PHOS 153 U/L (45-117)
[2023-02-20] MEDS: ALBUTEROL SO4 2.5/IPRATROPIUM 0.5 INH SOL 3 ML VIAL.NEB. NEB SCH ×4 (08:35→20:39)
[2023-02-20 08:36] LABS: BLOOD UREA NITROGEN 153.2 mg/dL (7-18); CALCIUM 6.5 mg/dL (8.5-10.1); CREATININE 7.7 mg/dL (0.55-1.3); PHOSPHOROUS 10.4 mg/dL (2.5-4.9)
[2023-02-20] MEDS: TAMSULOSIN HCL 0.4 MG CAP PO SCH ×2 (10:02→22:47)
[2023-02-20 10:03] LABS: ANISOCYTOSIS 2+; MACROCYTOSIS 0; ROULEAU 1+
[2023-02-20] MEDS: CEFTRIAXONE 2 GM in DEXTROSE 5%-WATER 100 ML IVPB SCH (10:04)
[2023-02-20] MEDS: amLODIPine BESYLATE 5 MG TABLET (FP) PO SCH (10:04)
[2023-02-20] MEDS: CALCIUM ACETATE 667 MG CAPSULE (FP) PO SCH ×3 (10:04→17:47)
[2023-02-20] MEDS: FINASTERIDE 5 MG TABLET (FP) PO SCH (10:05)
[2023-02-20] MEDS: PANTOPRAZOLE SODIUM 40 MG VIAL IVPUSH SCH (10:05)
[2023-02-20] MEDS ORDERED: SODIUM CHLORIDE 0.45% 1,000 ML IV SCH (15:15)
[2023-02-20 18:07] LABS: FREE KAPPA,SERUM 128.6 mg/L (3.3-19.4)
[2023-02-20 21:32] LABS: HIV INTERPRETATION NEGATIVE (NEGATIVE)
[2023-02-20] MEDS ORDERED: CHLORHEXIDINE GLUCONATE 4% CLEANSER FOR DECOLONIZATION TP SCH (22:00)
[2023-02-21] MEDS: ALBUTEROL SO4 2.5/IPRATROPIUM 0.5 INH SOL 3 ML VIAL.NEB. NEB SCH ×4 (07:40→20:16)
[2023-02-21] MEDS: CALCIUM ACETATE 667 MG CAPSULE (FP) PO SCH ×3 (09:11→17:21)
[2023-02-21] MEDS ORDERED: FINASTERIDE 5 MG TABLET (FP) PO SCH (10:00)
[2023-02-21] MEDS: amLODIPine BESYLATE 5 MG TABLET (FP) PO SCH (10:10)
[2023-02-21] MEDS: TAMSULOSIN HCL 0.4 MG CAP PO SCH ×2 (10:10→22:46)
[2023-02-21] MEDS: PANTOPRAZOLE SODIUM 40 MG VIAL IVPUSH SCH (10:11)
[2023-02-21 10:40] LABS: HEMOGLOBIN 7.1 GM/dL (11.7-16.9); MCH 30.3 pg (25.7-33.7); MCHC 33.9 g/dl (32.0-35.9); MEAN CELL VOLUME 89.4 fl (80-96); MEAN PLT VOLUME 10.1 fl (7.5-11.1); PLATELET COUNT 176 10^3/uL (134-434); RBC 2.34 M/mm3 (4.00-5.60); RDW 14.3 % (11.9-15.9); WHITE BLOOD COUNT 10.6 K/mm3 (4.0-10.0)
[2023-02-21 10:59] LABS: CHLORIDE 99 mmol/L (98-107); POTASSIUM 3.3 mmol/L (3.5-5.1); SODIUM 141 mmol/L (136-145)
[2023-02-21 11:06] LABS: GLUCOSE,RANDOM 74 mg/dL (74-106)
[2023-02-21 11:07] LABS: ALBUMIN 1.4 g/dl (3.4-5.0); ANION GAP 15 MMOL/L (8-16); CO2 28 mmol/L (21-32); MAGNESIUM 1.9 mg/dL (1.8-2.4); SGPT/ALT 34 U/L (13-61)
[2023-02-21 11:08] LABS: BILIRUBIN,TOTAL 0.4 mg/dL (0.2-1)
[2023-02-21 11:09] LABS: CREATININE 6.7 mg/dL (0.55-1.3); TOT PROT 5.2 g/dl (6.4-8.2)
[2023-02-21 11:10] LABS: ALK PHOS 129 U/L (45-117); SGOT/AST 29 U/L (15-37)
[2023-02-21 11:41] LABS: ANISOCYTOSIS 0; HELMET CELLS 0; HOWELL-JOLLY BODIES 0; MACROCYTOSIS 0; OVALOCYTE 0; ROULEAU 0; SICKELED CELLS 0; TARGET CELLS 0; TEAR DROP CELLS 0; TOXIC GRANULATION 0
[2023-02-21 11:53] LABS: PHOSPHOROUS 8.6 mg/dL (2.5-4.9)
[2023-02-21 12:02] LABS: BLOOD UREA NITROGEN 138.5 mg/dL (7-18); CALCIUM 6.3 mg/dL (8.5-10.1)
[2023-02-21] MEDS ORDERED: POTASSIUM CHLORIDE ORAL LIQUID 20 MEQ/15 ML PO ONE (12:24)
[2023-02-21] MEDS: CALCIUM 500MG/VIT-D 200 UNITS COMBO TABLET (FP) PO SCH (12:30)
[2023-02-21] MEDS ORDERED: SODIUM CHLORIDE 0.45% 1,000 ML IV SCH (12:30)
[2023-02-21] MEDS: CEFTRIAXONE 2 GM in DEXTROSE 5%-WATER 100 ML IVPB SCH (14:45)
[2023-02-22] MEDS: ALBUTEROL SO4 2.5/IPRATROPIUM 0.5 INH SOL 3 ML VIAL.NEB. NEB SCH ×4 (07:20→20:18)
[2023-02-22] MEDS: CALCIUM ACETATE 667 MG CAPSULE (FP) PO SCH ×3 (09:23→18:26)
[2023-02-22] MEDS: CALCIUM 500MG/VIT-D 200 UNITS COMBO TABLET (FP) PO SCH (09:23)
[2023-02-22] MEDS: amLODIPine BESYLATE 5 MG TABLET (FP) PO SCH (09:23)
[2023-02-22 09:24] LABS: HEMATOCRIT 19.3 % (35.4-49); MCH 30.1 pg (25.7-33.7); MCHC 34.2 g/dl (32.0-35.9); MEAN CELL VOLUME 88.2 fl (80-96); PLATELET COUNT 199 10^3/uL (134-434); RBC 2.18 M/mm3 (4.00-5.60); RDW 14.5 % (11.9-15.9); WHITE BLOOD COUNT 8.5 K/mm3 (4.0-10.0)
[2023-02-22] MEDS: PANTOPRAZOLE SODIUM 40 MG VIAL IVPUSH SCH (09:24)
[2023-02-22 09:29] LABS: HEMOGLOBIN 6.6 GM/dL (11.7-16.9)
[2023-02-22 09:45] LABS: CHLORIDE 102 mmol/L (98-107); POTASSIUM 3.6 mmol/L (3.5-5.1); SODIUM 140 mmol/L (136-145)
[2023-02-22] MEDS: CEFTRIAXONE 2 GM in DEXTROSE 5%-WATER 100 ML IVPB SCH (09:48)
[2023-02-22 09:57] LABS: ALBUMIN 1.4 g/dl (3.4-5.0)
[2023-02-22 09:58] LABS: ANION GAP 11 MMOL/L (8-16); CO2 26 mmol/L (21-32); GLUCOSE,RANDOM 65 mg/dL (74-106); MAGNESIUM 1.7 mg/dL (1.8-2.4)
[2023-02-22 09:59] LABS: CREATININE 6.3 mg/dL (0.55-1.3); SGOT/AST 27 U/L (15-37)
[2023-02-22 10:00] LABS: SGPT/ALT 28 U/L (13-61)
[2023-02-22 10:01] LABS: BILIRUBIN,TOTAL 0.5 mg/dL (0.2-1); PHOSPHOROUS 7.9 mg/dL (2.5-4.9); TOT PROT 5.2 g/dl (6.4-8.2)
[2023-02-22 10:02] LABS: ALK PHOS 111 U/L (45-117)
[2023-02-22 10:08] LABS: BLOOD UREA NITROGEN 114.9 mg/dL (7-18); CALCIUM 6.7 mg/dL (8.5-10.1)
[2023-02-22] MEDS ORDERED: MAGNESIUM 1GM/D5W 100ML - 100 ML IVPB IVPB ONE (10:56)
[2023-02-22] MEDS ORDERED: DEXTROSE 5%-0.45% SALINE 1,000 ML IV SCH (15:15)
[2023-02-22] MEDS ORDERED: ACETAMINOPHEN 325 MG TABLET (FP) PO PRN (17:24)
[2023-02-22] MEDS: DEXTROSE 5%-0.45% SALINE 1,000 ML IV SCH (20:05)
[2023-02-23 00:44] LABS: HEMATOCRIT 23.2 % (35.4-49); HEMOGLOBIN 7.9 GM/dL (11.7-16.9); MCH 29.5 pg (25.7-33.7); MEAN CELL VOLUME 86.7 fl (80-96); MEAN PLT VOLUME 8.7 fl (7.5-11.1); PLATELET COUNT 219 10^3/uL (134-434); RBC 2.68 M/mm3 (4.00-5.60); RDW 15.5 % (11.9-15.9); WHITE BLOOD COUNT 8.5 K/mm3 (4.0-10.0)
[2023-02-23] MEDS: ALBUTEROL SO4 2.5/IPRATROPIUM 0.5 INH SOL 3 ML VIAL.NEB. NEB SCH ×4 (07:36→19:47)
[2023-02-23] MEDS: CALCIUM ACETATE 667 MG CAPSULE (FP) PO SCH ×3 (08:11→17:27)
[2023-02-23 08:36] LABS: HEMATOCRIT 22.9 % (35.4-49); HEMOGLOBIN 7.8 GM/dL (11.7-16.9); MCH 29.4 pg (25.7-33.7); MCHC 34.2 g/dl (32.0-35.9); MEAN CELL VOLUME 86.1 fl (80-96); MEAN PLT VOLUME 8.8 fl (7.5-11.1); PLATELET COUNT 218 10^3/uL (134-434); RBC 2.67 M/mm3 (4.00-5.60); RDW 15.4 % (11.9-15.9); WHITE BLOOD COUNT 8.6 K/mm3 (4.0-10.0)
[2023-02-23 08:48] LABS: CHLORIDE 106 mmol/L (98-107); POTASSIUM 3.4 mmol/L (3.5-5.1); SODIUM 144 mmol/L (136-145)
[2023-02-23 08:51] LABS: ALBUMIN 1.4 g/dl (3.4-5.0); ANION GAP 10 MMOL/L (8-16); CO2 28 mmol/L (21-32); GLUCOSE,RANDOM 86 mg/dL (74-106)
[2023-02-23 08:53] LABS: PHOSPHOROUS 7.8 mg/dL (2.5-4.9)
[2023-02-23 08:54] LABS: CREATININE 5.7 mg/dL (0.55-1.3); SGOT/AST 26 U/L (15-37); SGPT/ALT 29 U/L (13-61)
[2023-02-23 08:55] LABS: BILIRUBIN,TOTAL 0.5 mg/dL (0.2-1); TOT PROT 5.3 g/dl (6.4-8.2)
[2023-02-23 08:57] LABS: ALK PHOS 113 U/L (45-117)
[2023-02-23 09:07] LABS: BLOOD UREA NITROGEN 114.6 mg/dL (7-18); CALCIUM 6.9 mg/dL (8.5-10.1)
[2023-02-23] MEDS ORDERED: POTASSIUM CHLORIDE TABS 10 MEQ TABLET.ER (FP) PO ONE (09:22)
[2023-02-23] MEDS: PANTOPRAZOLE SODIUM 40 MG VIAL IVPUSH SCH (10:03)
[2023-02-23] MEDS: CALCIUM 500MG/VIT-D 200 UNITS COMBO TABLET (FP) PO SCH (10:03)
[2023-02-23] MEDS: DEXTROSE 5%-0.45% SALINE 1,000 ML IV SCH (11:47)
[2023-02-23] MEDS ORDERED: POTASSIUM CHLORIDE ORAL LIQUID 20 MEQ/15 ML PO ONE (16:55)
[2023-02-24] MEDS: DEXTROSE 5%-0.45% SALINE 1,000 ML IV SCH ×3 (06:35→20:16)
[2023-02-24] MEDS: ALBUTEROL SO4 2.5/IPRATROPIUM 0.5 INH SOL 3 ML VIAL.NEB. NEB SCH ×4 (07:35→19:59)
[2023-02-24] MEDS: CALCIUM ACETATE 667 MG CAPSULE (FP) PO SCH ×3 (08:48→17:20)
[2023-02-24 09:21] LABS: HEMATOCRIT 24.2 % (35.4-49); HEMOGLOBIN 8.3 GM/dL (11.7-16.9); MCHC 34.4 g/dl (32.0-35.9); MEAN CELL VOLUME 87.3 fl (80-96); MEAN PLT VOLUME 9.4 fl (7.5-11.1); PLATELET COUNT 210 10^3/uL (134-434); RBC 2.78 M/mm3 (4.00-5.60); RDW 15.6 % (11.9-15.9); WHITE BLOOD COUNT 6.8 K/mm3 (4.0-10.0)
[2023-02-24 09:38] LABS: POTASSIUM 3.6 mmol/L (3.5-5.1)
[2023-02-24 09:40] LABS: ALBUMIN 1.6 g/dl (3.4-5.0); BLOOD UREA NITROGEN 90.6 mg/dL (7-18); CALCIUM 7.3 mg/dL (8.5-10.1); MAGNESIUM 1.8 mg/dL (1.8-2.4)
[2023-02-24 09:43] LABS: CREATININE 4.8 mg/dL (0.55-1.3); PHOSPHOROUS 5.3 mg/dL (2.5-4.9)
[2023-02-24 09:45] LABS: BILIRUBIN,TOTAL 0.4 mg/dL (0.2-1); TOT PROT 5.8 g/dl (6.4-8.2)
[2023-02-24] MEDS: PANTOPRAZOLE SODIUM 40 MG VIAL IVPUSH SCH (10:57)
[2023-02-24] MEDS: CALCIUM 500MG/VIT-D 200 UNITS COMBO TABLET (FP) PO SCH (10:57)
[2023-02-25] MEDS: ALBUTEROL SO4 2.5/IPRATROPIUM 0.5 INH SOL 3 ML VIAL.NEB. NEB SCH ×3 (07:25→15:11)
[2023-02-25] MEDS: CALCIUM ACETATE 667 MG CAPSULE (FP) PO SCH ×3 (08:10→16:51)
[2023-02-25 09:12] LABS: HEMATOCRIT 23.9 % (35.4-49); HEMOGLOBIN 8.2 GM/dL (11.7-16.9); MCH 29.8 pg (25.7-33.7); MCHC 34.4 g/dl (32.0-35.9); MEAN CELL VOLUME 86.8 fl (80-96); MEAN PLT VOLUME 8.9 fl (7.5-11.1); PLATELET COUNT 221 10^3/uL (134-434); RBC 2.75 M/mm3 (4.00-5.60); RDW 15.2 % (11.9-15.9); WHITE BLOOD COUNT 5.8 K/mm3 (4.0-10.0)
[2023-02-25 09:26] LABS: POTASSIUM 3.5 mmol/L (3.5-5.1)
[2023-02-25 09:28] LABS: CALCIUM 7.3 mg/dL (8.5-10.1)
[2023-02-25 09:29] LABS: ALBUMIN 1.5 g/dl (3.4-5.0); BLOOD UREA NITROGEN 79.9 mg/dL (7-18); MAGNESIUM 1.6 mg/dL (1.8-2.4)
[2023-02-25 09:31] LABS: CREATININE 4.3 mg/dL (0.55-1.3)
[2023-02-25 09:32] LABS: PHOSPHOROUS 4.5 mg/dL (2.5-4.9)
[2023-02-25 09:33] LABS: BILIRUBIN,TOTAL 0.6 mg/dL (0.2-1); TOT PROT 5.5 g/dl (6.4-8.2)
[2023-02-25] MEDS: CALCIUM 500MG/VIT-D 200 UNITS COMBO TABLET (FP) PO SCH (09:39)
[2023-02-25] MEDS: PANTOPRAZOLE SODIUM 40 MG VIAL IVPUSH SCH (09:39)
[2023-02-25] MEDS: DEXTROSE 5%-0.45% SALINE 1,000 ML IV SCH ×2 (16:07→17:57)
[2023-02-26] MEDS: CALCIUM ACETATE 667 MG CAPSULE (FP) PO SCH ×3 (08:33→17:08)
[2023-02-26] MEDS: PANTOPRAZOLE SODIUM 40 MG VIAL IVPUSH SCH (09:21)
[2023-02-26] MEDS: CALCIUM 500MG/VIT-D 200 UNITS COMBO TABLET (FP) PO SCH (09:21)
[2023-02-26 10:34] LABS: POTASSIUM 3.6 mmol/L (3.5-5.1)
[2023-02-26 10:36] LABS: CALCIUM 7.2 mg/dL (8.5-10.1)
[2023-02-26 10:37] LABS: BLOOD UREA NITROGEN 73.4 mg/dL (7-18)
[2023-02-26 10:40] LABS: CREATININE 3.9 mg/dL (0.55-1.3)
[2023-02-26] MEDS: DEXTROSE 5%-0.45% SALINE 1,000 ML IV SCH (18:38)
[2023-02-27] MEDS: DEXTROSE 5%-0.45% SALINE 1,000 ML IV SCH ×3 (02:56→21:59)
[2023-02-27] MEDS: CALCIUM ACETATE 667 MG CAPSULE (FP) PO SCH ×3 (08:17→17:28)
[2023-02-27] MEDS: CALCIUM 500MG/VIT-D 200 UNITS COMBO TABLET (FP) PO SCH (10:38)
[2023-02-27] MEDS: PANTOPRAZOLE SODIUM 40 MG VIAL IVPUSH SCH (10:39)
[2023-02-27 11:37] LABS: HEMATOCRIT 24.5 % (35.4-49); HEMOGLOBIN 8.5 GM/dL (11.7-16.9); MCH 30.2 pg (25.7-33.7); MCHC 34.8 g/dl (32.0-35.9); MEAN CELL VOLUME 86.6 fl (80-96); PLATELET COUNT 216 10^3/uL (134-434); RBC 2.83 M/mm3 (4.00-5.60); RDW 14.8 % (11.9-15.9); WHITE BLOOD COUNT 5.1 K/mm3 (4.0-10.0)
[2023-02-27 11:50] LABS: POTASSIUM 3.6 mmol/L (3.5-5.1)
[2023-02-27 12:03] LABS: CALCIUM 7.6 mg/dL (8.5-10.1)
[2023-02-27 12:04] LABS: BLOOD UREA NITROGEN 62.5 mg/dL (7-18); MAGNESIUM 1.4 mg/dL (1.8-2.4)
[2023-02-27 12:07] LABS: CREATININE 3.4 mg/dL (0.55-1.3); PHOSPHOROUS 3.6 mg/dL (2.5-4.9)
[2023-02-27] MEDS ORDERED: MAGNESIUM SULF 50% (8.12 MEQ/2 ML-1 GM VIAL) IVPB ONE (13:06)
[2023-02-27] MEDS: HEPARIN NA (PORCINE) 5,000 UNITS/ML 1ML VIAL SQ SCH ×2 (13:47→21:56)
[2023-02-28] MEDS: HEPARIN NA (PORCINE) 5,000 UNITS/ML 1ML VIAL SQ SCH ×3 (05:56→21:02)
[2023-02-28] MEDS: CALCIUM ACETATE 667 MG CAPSULE (FP) PO SCH ×3 (08:49→17:33)
[2023-02-28] MEDS: PANTOPRAZOLE 40 MG TABLET PO SCH (09:49)
[2023-02-28] MEDS: CALCIUM 500MG/VIT-D 200 UNITS COMBO TABLET (FP) PO SCH (09:49)
[2023-02-28 10:51] LABS: POTASSIUM 3.3 mmol/L (3.5-5.1)
[2023-02-28 10:55] LABS: CALCIUM 7.7 mg/dL (8.5-10.1)
[2023-02-28 10:56] LABS: ALBUMIN 1.6 g/dl (3.4-5.0)
[2023-02-28 10:58] LABS: BLOOD UREA NITROGEN 60.2 mg/dL (7-18)
[2023-02-28 10:59] LABS: CREATININE 3.2 mg/dL (0.55-1.3); PHOSPHOROUS 2.9 mg/dL (2.5-4.9)
[2023-02-28 11:00] LABS: BILIRUBIN,TOTAL 0.4 mg/dL (0.2-1)
[2023-02-28 11:01] LABS: TOT PROT 5.9 g/dl (6.4-8.2)
[2023-02-28] MEDS ORDERED: POTASSIUM CHLORIDE ORAL LIQUID 20 MEQ/15 ML PO ONE (12:43)
[2023-02-28] MEDS: DEXTROSE 5%-0.45% SALINE 1,000 ML IV SCH (12:59)
[2023-03-01] MEDS: HEPARIN NA (PORCINE) 5,000 UNITS/ML 1ML VIAL SQ SCH ×3 (05:22→21:48)
[2023-03-01 08:27] LABS: HEMATOCRIT 24.1 % (35.4-49); HEMOGLOBIN 8.5 GM/dL (11.7-16.9); MCH 30.2 pg (25.7-33.7); MCHC 35.3 g/dl (32.0-35.9); MEAN CELL VOLUME 85.6 fl (80-96); MEAN PLT VOLUME 8.7 fl (7.5-11.1); PLATELET COUNT 226 10^3/uL (134-434); RBC 2.82 M/mm3 (4.00-5.60); RDW 14.8 % (11.9-15.9); WHITE BLOOD COUNT 5.1 K/mm3 (4.0-10.0)
[2023-03-01] MEDS: CALCIUM ACETATE 667 MG CAPSULE (FP) PO SCH ×3 (08:30→16:51)
[2023-03-01 08:39] LABS: POTASSIUM 3.8 mmol/L (3.5-5.1)
[2023-03-01 08:50] LABS: BLOOD UREA NITROGEN 55.5 mg/dL (7-18); CALCIUM 7.5 mg/dL (8.5-10.1); MAGNESIUM 1.7 mg/dL (1.8-2.4)
[2023-03-01 08:53] LABS: CREATININE 2.8 mg/dL (0.55-1.3); PHOSPHOROUS 3.3 mg/dL (2.5-4.9)
[2023-03-01] MEDS: CALCIUM 500MG/VIT-D 200 UNITS COMBO TABLET (FP) PO SCH (09:30)
[2023-03-01] MEDS: PANTOPRAZOLE 40 MG TABLET PO SCH (09:30)
[2023-03-01] MEDS: DEXTROSE 5%-0.45% SALINE 1,000 ML IV SCH ×2 (11:54→14:02)
[2023-03-01] MEDS ORDERED: MAGNESIUM SULF 50% (8.12 MEQ/2 ML-1 GM VIAL) IVPB ONE (12:05)
[2023-03-01] MEDS: FINASTERIDE 5 MG TABLET (FP) PO SCH (15:51)
[2023-03-02] MEDS: HEPARIN NA (PORCINE) 5,000 UNITS/ML 1ML VIAL SQ SCH ×3 (05:59→21:11)
[2023-03-02] MEDS: CALCIUM ACETATE 667 MG CAPSULE (FP) PO SCH ×3 (08:56→17:17)
[2023-03-02] MEDS: TAMSULOSIN HCL 0.4 MG CAP PO SCH (08:56)
[2023-03-02] MEDS: CALCIUM 500MG/VIT-D 200 UNITS COMBO TABLET (FP) PO SCH (09:03)
[2023-03-02] MEDS: FINASTERIDE 5 MG TABLET (FP) PO SCH (09:03)
[2023-03-02] MEDS: PANTOPRAZOLE 40 MG TABLET PO SCH (09:03)
[2023-03-02 09:26] LABS: HEMATOCRIT 28.5 % (35.4-49); HEMOGLOBIN 9.6 GM/dL (11.7-16.9); MCH 29.2 pg (25.7-33.7); MCHC 33.6 g/dl (32.0-35.9); MEAN PLT VOLUME 8.8 fl (7.5-11.1); PLATELET COUNT 268 10^3/uL (134-434); RBC 3.28 M/mm3 (4.00-5.60); RDW 14.8 % (11.9-15.9)
[2023-03-02 09:43] LABS: POTASSIUM 4.9 mmol/L (3.5-5.1)
[2023-03-02 09:46] LABS: CALCIUM 7.9 mg/dL (8.5-10.1)
[2023-03-02 09:47] LABS: ALBUMIN 1.7 g/dl (3.4-5.0); BLOOD UREA NITROGEN 54.5 mg/dL (7-18); MAGNESIUM 2.3 mg/dL (1.8-2.4)
[2023-03-02 09:50] LABS: CREATININE 2.9 mg/dL (0.55-1.3); PHOSPHOROUS 3.5 mg/dL (2.5-4.9)
[2023-03-02 09:51] LABS: TOT PROT 6.2 g/dl (6.4-8.2)
[2023-03-02 09:52] LABS: BILIRUBIN,TOTAL 0.4 mg/dL (0.2-1)
[2023-03-02] MEDS: DEXTROSE 5%-0.45% SALINE 1,000 ML IV SCH (21:11)
[2023-03-03] MEDS: HEPARIN NA (PORCINE) 5,000 UNITS/ML 1ML VIAL SQ SCH ×3 (05:36→21:44)
[2023-03-03] MEDS: CALCIUM ACETATE 667 MG CAPSULE (FP) PO SCH ×3 (08:11→17:32)
[2023-03-03] MEDS: TAMSULOSIN HCL 0.4 MG CAP PO SCH (09:17)
[2023-03-03] MEDS: FINASTERIDE 5 MG TABLET (FP) PO SCH (09:17)
[2023-03-03] MEDS: PANTOPRAZOLE 40 MG TABLET PO SCH (09:17)
[2023-03-03] MEDS: CALCIUM 500MG/VIT-D 200 UNITS COMBO TABLET (FP) PO SCH (09:17)
[2023-03-03 09:46] LABS: HEMATOCRIT 25.4 % (35.4-49); HEMOGLOBIN 8.8 GM/dL (11.7-16.9); MCH 29.8 pg (25.7-33.7); MCHC 34.5 g/dl (32.0-35.9); MEAN CELL VOLUME 86.2 fl (80-96); MEAN PLT VOLUME 9.2 fl (7.5-11.1); PLATELET COUNT 266 10^3/uL (134-434); RBC 2.95 M/mm3 (4.00-5.60); RDW 14.5 % (11.9-15.9); WHITE BLOOD COUNT 7.4 K/mm3 (4.0-10.0)
[2023-03-03 09:48] LABS: POTASSIUM 3.9 mmol/L (3.5-5.1)
[2023-03-03 09:52] LABS: CALCIUM 7.9 mg/dL (8.5-10.1)
[2023-03-03 09:53] LABS: BLOOD UREA NITROGEN 56.3 mg/dL (7-18); MAGNESIUM 2.2 mg/dL (1.8-2.4)
[2023-03-03 09:54] LABS: ALBUMIN 1.7 g/dl (3.4-5.0)
[2023-03-03 09:56] LABS: CREATININE 2.8 mg/dL (0.55-1.3); PHOSPHOROUS 3.2 mg/dL (2.5-4.9)
[2023-03-03 09:57] LABS: BILIRUBIN,TOTAL 0.3 mg/dL (0.2-1)
[2023-03-03 09:58] LABS: TOT PROT 5.9 g/dl (6.4-8.2)
[2023-03-03] MEDS: DEXTROSE 5%-0.45% SALINE 1,000 ML IV SCH (17:33)
[2023-03-04] MEDS: HEPARIN NA (PORCINE) 5,000 UNITS/ML 1ML VIAL SQ SCH ×3 (05:54→21:36)
[2023-03-04] MEDS: FINASTERIDE 5 MG TABLET (FP) PO SCH (09:06)
[2023-03-04] MEDS: CALCIUM ACETATE 667 MG CAPSULE (FP) PO SCH ×3 (09:06→17:03)
[2023-03-04] MEDS: CALCIUM 500MG/VIT-D 200 UNITS COMBO TABLET (FP) PO SCH (09:06)
[2023-03-04] MEDS: TAMSULOSIN HCL 0.4 MG CAP PO SCH (09:06)
[2023-03-04] MEDS: PANTOPRAZOLE 40 MG TABLET PO SCH (09:06)
[2023-03-04] MEDS: VITAMIN B COMP W-C 1 EA TABLET (NEPHRO-VITE) PO SCH (09:08)
[2023-03-04] MEDS: DEXTROSE 5%-0.45% SALINE 1,000 ML IV SCH (14:22)
[2023-03-05] MEDS: HEPARIN NA (PORCINE) 5,000 UNITS/ML 1ML VIAL SQ SCH ×3 (05:40→21:29)
[2023-03-05] MEDS: CALCIUM ACETATE 667 MG CAPSULE (FP) PO SCH ×3 (08:17→17:21)
[2023-03-05] MEDS: CALCIUM 500MG/VIT-D 200 UNITS COMBO TABLET (FP) PO SCH (09:16)
[2023-03-05] MEDS: FAMOTIDINE 20 MG TABLET PO SCH (09:17)
[2023-03-05] MEDS: FINASTERIDE 5 MG TABLET (FP) PO SCH (09:17)
[2023-03-05] MEDS: VITAMIN B COMP W-C 1 EA TABLET (NEPHRO-VITE) PO SCH (09:17)
[2023-03-05] MEDS: TAMSULOSIN HCL 0.4 MG CAP PO SCH (09:17)
[2023-03-05] MEDS: DEXTROSE 5%-0.45% SALINE 1,000 ML IV SCH (09:22)
[2023-03-05 11:03] LABS: POTASSIUM 4.4 mmol/L (3.5-5.1)
[2023-03-05 11:09] LABS: CALCIUM 7.9 mg/dL (8.5-10.1)
[2023-03-05 11:10] LABS: ALBUMIN 1.8 g/dl (3.4-5.0); BLOOD UREA NITROGEN 50.9 mg/dL (7-18)
[2023-03-05 11:13] LABS: CREATININE 2.8 mg/dL (0.55-1.3)
[2023-03-05 11:15] LABS: BILIRUBIN,TOTAL 0.3 mg/dL (0.2-1); TOT PROT 6.5 g/dl (6.4-8.2)
[2023-03-06] MEDS: HEPARIN NA (PORCINE) 5,000 UNITS/ML 1ML VIAL SQ SCH ×2 (05:18→13:57)
[2023-03-06] MEDS: CALCIUM ACETATE 667 MG CAPSULE (FP) PO SCH ×3 (08:29→17:17)
[2023-03-06 09:13] LABS: HEMATOCRIT 26.2 % (35.4-49); HEMOGLOBIN 8.9 GM/dL (11.7-16.9); MCH 29.5 pg (25.7-33.7); MEAN CELL VOLUME 86.6 fl (80-96); MEAN PLT VOLUME 8.5 fl (7.5-11.1); PLATELET COUNT 303 10^3/uL (134-434); RBC 3.03 M/mm3 (4.00-5.60); RDW 14.6 % (11.9-15.9); WHITE BLOOD COUNT 7.5 K/mm3 (4.0-10.0)
[2023-03-06 09:28] LABS: POTASSIUM 4.7 mmol/L (3.5-5.1)
[2023-03-06] MEDS: VITAMIN B COMP W-C 1 EA TABLET (NEPHRO-VITE) PO SCH (09:29)
[2023-03-06] MEDS: TAMSULOSIN HCL 0.4 MG CAP PO SCH (09:29)
[2023-03-06] MEDS: FAMOTIDINE 20 MG TABLET PO SCH (09:29)
[2023-03-06] MEDS: FINASTERIDE 5 MG TABLET (FP) PO SCH (09:29)
[2023-03-06] MEDS: CALCIUM 500MG/VIT-D 200 UNITS COMBO TABLET (FP) PO SCH (09:29)
[2023-03-06 09:30] LABS: CALCIUM 8.1 mg/dL (8.5-10.1)
[2023-03-06 09:31] LABS: ALBUMIN 1.8 g/dl (3.4-5.0); BLOOD UREA NITROGEN 47.8 mg/dL (7-18); MAGNESIUM 1.6 mg/dL (1.8-2.4)
[2023-03-06 09:34] LABS: CREATININE 2.7 mg/dL (0.55-1.3); PHOSPHOROUS 3.2 mg/dL (2.5-4.9)
[2023-03-06 09:36] LABS: BILIRUBIN,TOTAL 0.5 mg/dL (0.2-1); TOT PROT 6.3 g/dl (6.4-8.2)
[2023-03-06] MEDS: DEXTROSE 5%-0.45% SALINE 1,000 ML IV SCH ×2 (09:41→21:14)
[2023-03-06] MEDS ORDERED: MAGNESIUM SULF 50% (8.12 MEQ/2 ML-1 GM VIAL) IVPB ONE (12:11)
[2023-03-06] MEDS ORDERED: MAGNESIUM 2GM/50ML STERILE WATER IVPB IVPB ONE (13:45)
[2023-03-07] MEDS: TAMSULOSIN HCL 0.4 MG CAP PO SCH (07:57)
[2023-03-07] MEDS: CALCIUM ACETATE 667 MG CAPSULE (FP) PO SCH ×3 (07:57→17:33)
[2023-03-07 09:00] LABS: HEMATOCRIT 24.7 % (35.4-49); HEMOGLOBIN 8.4 GM/dL (11.7-16.9); MCH 29.4 pg (25.7-33.7); MCHC 33.9 g/dl (32.0-35.9); MEAN CELL VOLUME 86.7 fl (80-96); MEAN PLT VOLUME 8.5 fl (7.5-11.1); PLATELET COUNT 292 10^3/uL (134-434); RBC 2.85 M/mm3 (4.00-5.60); RDW 14.9 % (11.9-15.9); WHITE BLOOD COUNT 8.9 K/mm3 (4.0-10.0)
[2023-03-07 09:08] LABS: INR 1.22 (0.83-1.09); PROTHROMBIN TIME (PATIENT) 14.1 SEC (9.7-13.0)
[2023-03-07 09:11] LABS: ACTIVATED PTT 26.6 SECONDS (25.2-36.5)
[2023-03-07 09:32] LABS: POTASSIUM 4.5 mmol/L (3.5-5.1)
[2023-03-07 09:36] LABS: ALBUMIN 1.7 g/dl (3.4-5.0); BLOOD UREA NITROGEN 44.9 mg/dL (7-18); CALCIUM 8.2 mg/dL (8.5-10.1); MAGNESIUM 2.2 mg/dL (1.8-2.4)
[2023-03-07 09:39] LABS: CREATININE 2.5 mg/dL (0.55-1.3); PHOSPHOROUS 3.1 mg/dL (2.5-4.9)
[2023-03-07 09:40] LABS: TOT PROT 5.9 g/dl (6.4-8.2)
[2023-03-07 09:41] LABS: BILIRUBIN,TOTAL 0.4 mg/dL (0.2-1)
[2023-03-07] MEDS: FINASTERIDE 5 MG TABLET (FP) PO SCH (10:29)
[2023-03-07] MEDS: CALCIUM 500MG/VIT-D 200 UNITS COMBO TABLET (FP) PO SCH (10:29)
[2023-03-07] MEDS: FAMOTIDINE 20 MG TABLET PO SCH (10:29)
[2023-03-07] MEDS: VITAMIN B COMP W-C 1 EA TABLET (NEPHRO-VITE) PO SCH (10:29)
[2023-03-07] MEDS ORDERED: MIDAZOLAM HCL 2 MG/2 ML SINGLE DOSE VIAL ONE (15:51)
[2023-03-07] MEDS ORDERED: ceFAZolin SODIUM 1 GM VIAL IVPB ONE (16:06)
[2023-03-07] MEDS ORDERED: ONDANSETRON 4 MG/2 ML VIAL ONE (16:14)
[2023-03-07] MEDS ORDERED: ceFAZolin SODIUM 1 GM VIAL ONE (16:14)
[2023-03-07] MEDS ORDERED: ePHEDrine SULFATE 50 MG/1 ML AMPULE ONE (16:29)
[2023-03-07] MEDS ORDERED: ONDANSETRON 4 MG/2 ML VIAL IVPUSH PRN (16:32)
[2023-03-07] MEDS ORDERED: LACTATED RINGERS SOLUTION 1,000 ML IV SCH (16:45)
[2023-03-07] MEDS ORDERED: ACETAMINOPHEN 325 MG TABLET (FP) PO PRN (17:59)
[2023-03-08] MEDS: HEPARIN NA (PORCINE) 5,000 UNITS/ML 1ML VIAL SQ SCH ×3 (06:29→23:10)
[2023-03-08] MEDS: CALCIUM ACETATE 667 MG CAPSULE (FP) PO SCH ×3 (08:05→17:20)
[2023-03-08] MEDS: TAMSULOSIN HCL 0.4 MG CAP PO SCH (08:05)
[2023-03-08 08:17] LABS: HEMATOCRIT 23.9 % (35.4-49); HEMOGLOBIN 8.3 GM/dL (11.7-16.9); MCHC 34.6 g/dl (32.0-35.9); MEAN CELL VOLUME 86.8 fl (80-96); MEAN PLT VOLUME 8.5 fl (7.5-11.1); PLATELET COUNT 277 10^3/uL (134-434); RBC 2.75 M/mm3 (4.00-5.60); WHITE BLOOD COUNT 8.8 K/mm3 (4.0-10.0)
[2023-03-08 08:20] LABS: POTASSIUM 4.5 mmol/L (3.5-5.1)
[2023-03-08 08:26] LABS: ALBUMIN 1.8 g/dl (3.4-5.0); CALCIUM 7.7 mg/dL (8.5-10.1)
[2023-03-08 08:28] LABS: PHOSPHOROUS 3.8 mg/dL (2.5-4.9)
[2023-03-08 08:29] LABS: CREATININE 2.5 mg/dL (0.55-1.3); MAGNESIUM 1.8 mg/dL (1.8-2.4); TOT PROT 6.2 g/dl (6.4-8.2)
[2023-03-08 08:30] LABS: BILIRUBIN,TOTAL 0.3 mg/dL (0.2-1)
[2023-03-08] MEDS: CALCIUM 500MG/VIT-D 200 UNITS COMBO TABLET (FP) PO SCH (09:47)
[2023-03-08] MEDS: VITAMIN B COMP W-C 1 EA TABLET (NEPHRO-VITE) PO SCH (09:47)
[2023-03-08] MEDS: FINASTERIDE 5 MG TABLET (FP) PO SCH (09:47)
[2023-03-08] MEDS: FAMOTIDINE 20 MG TABLET PO SCH (09:47)
[2023-03-09] MEDS: HEPARIN NA (PORCINE) 5,000 UNITS/ML 1ML VIAL SQ SCH ×3 (06:08→21:50)
[2023-03-09 08:20] LABS: HEMATOCRIT 24.6 % (35.4-49); HEMOGLOBIN 8.5 GM/dL (11.7-16.9); MCH 30.2 pg (25.7-33.7); MCHC 34.6 g/dl (32.0-35.9); MEAN CELL VOLUME 87.2 fl (80-96); MEAN PLT VOLUME 8.6 fl (7.5-11.1); PLATELET COUNT 302 10^3/uL (134-434); RBC 2.82 M/mm3 (4.00-5.60); RDW 15.4 % (11.9-15.9); WHITE BLOOD COUNT 11.3 K/mm3 (4.0-10.0)
[2023-03-09 08:23] LABS: POTASSIUM 5.1 mmol/L (3.5-5.1)
[2023-03-09 08:26] LABS: ALBUMIN 1.9 g/dl (3.4-5.0); BLOOD UREA NITROGEN 44.5 mg/dL (7-18); MAGNESIUM 1.9 mg/dL (1.8-2.4)
[2023-03-09] MEDS: CALCIUM ACETATE 667 MG CAPSULE (FP) PO SCH ×3 (08:26→17:41)
[2023-03-09] MEDS: TAMSULOSIN HCL 0.4 MG CAP PO SCH (08:27)
[2023-03-09 08:29] LABS: CREATININE 2.5 mg/dL (0.55-1.3); PHOSPHOROUS 3.2 mg/dL (2.5-4.9)
[2023-03-09 08:30] LABS: TOT PROT 6.4 g/dl (6.4-8.2)
[2023-03-09 08:31] LABS: BILIRUBIN,TOTAL 0.3 mg/dL (0.2-1)
[2023-03-09] MEDS: FAMOTIDINE 20 MG TABLET PO SCH (10:10)
[2023-03-09] MEDS: VITAMIN B COMP W-C 1 EA TABLET (NEPHRO-VITE) PO SCH (10:10)
[2023-03-09] MEDS: FINASTERIDE 5 MG TABLET (FP) PO SCH (10:10)
[2023-03-09] MEDS: CALCIUM 500MG/VIT-D 200 UNITS COMBO TABLET (FP) PO SCH (10:10)
[2023-03-10] MEDS: HEPARIN NA (PORCINE) 5,000 UNITS/ML 1ML VIAL SQ SCH ×3 (06:21→21:35)
[2023-03-10 08:29] LABS: HEMATOCRIT 25.5 % (35.4-49); HEMOGLOBIN 8.9 GM/dL (11.7-16.9); MCH 30.4 pg (25.7-33.7); MCHC 34.7 g/dl (32.0-35.9); MEAN CELL VOLUME 87.4 fl (80-96); MEAN PLT VOLUME 8.7 fl (7.5-11.1); PLATELET COUNT 301 10^3/uL (134-434); RBC 2.92 M/mm3 (4.00-5.60); RDW 15.4 % (11.9-15.9); WHITE BLOOD COUNT 10.6 K/mm3 (4.0-10.0)
[2023-03-10 08:42] LABS: ALBUMIN 1.9 g/dl (3.4-5.0); BLOOD UREA NITROGEN 48.2 mg/dL (7-18); MAGNESIUM 1.7 mg/dL (1.8-2.4)
[2023-03-10] MEDS: CALCIUM ACETATE 667 MG CAPSULE (FP) PO SCH ×3 (08:43→17:18)
[2023-03-10] MEDS: TAMSULOSIN HCL 0.4 MG CAP PO SCH (08:43)
[2023-03-10 08:45] LABS: CREATININE 2.6 mg/dL (0.55-1.3)
[2023-03-10 08:46] LABS: BILIRUBIN,TOTAL 0.6 mg/dL (0.2-1)
[2023-03-10 08:47] LABS: TOT PROT 6.4 g/dl (6.4-8.2)
[2023-03-10] MEDS: CALCIUM 500MG/VIT-D 200 UNITS COMBO TABLET (FP) PO SCH (09:57)
[2023-03-10] MEDS: VITAMIN B COMP W-C 1 EA TABLET (NEPHRO-VITE) PO SCH (09:57)
[2023-03-10] MEDS: FINASTERIDE 5 MG TABLET (FP) PO SCH (09:57)
[2023-03-10] MEDS: FAMOTIDINE 20 MG TABLET PO SCH (09:57)
[2023-03-10] MEDS ORDERED: MAGNESIUM SULF 50% (8.12 MEQ/2 ML-1 GM VIAL) IVPB ONE (11:27)
[2023-03-11 02:58] VITALS: RESP 18
[2023-03-11] MEDS: HEPARIN NA (PORCINE) 5,000 UNITS/ML 1ML VIAL SQ SCH ×3 (05:44→21:55)
[2023-03-11 07:56] LABS: HEMATOCRIT 25.3 % (35.4-49); HEMOGLOBIN 8.7 GM/dL (11.7-16.9); MCH 29.9 pg (25.7-33.7); MCHC 34.4 g/dl (32.0-35.9); MEAN CELL VOLUME 87.1 fl (80-96); MEAN PLT VOLUME 7.8 fl (7.5-11.1); PLATELET COUNT 298 10^3/uL (134-434); RBC 2.91 M/mm3 (4.00-5.60); RDW 15.6 % (11.9-15.9)
[2023-03-11] MEDS: TAMSULOSIN HCL 0.4 MG CAP PO SCH (08:01)
[2023-03-11] MEDS: CALCIUM ACETATE 667 MG CAPSULE (FP) PO SCH ×3 (08:01→17:25)
[2023-03-11 08:13] LABS: POTASSIUM 4.5 mmol/L (3.5-5.1)
[2023-03-11 08:24] LABS: CALCIUM 7.9 mg/dL (8.5-10.1)
[2023-03-11 08:25] LABS: BLOOD UREA NITROGEN 58.8 mg/dL (7-18); MAGNESIUM 2.4 mg/dL (1.8-2.4)
[2023-03-11 08:28] LABS: CREATININE 2.7 mg/dL (0.55-1.3); PHOSPHOROUS 3.5 mg/dL (2.5-4.9)
[2023-03-11 08:29] LABS: TOT PROT 6.6 g/dl (6.4-8.2)
[2023-03-11 08:30] LABS: BILIRUBIN,TOTAL 0.4 mg/dL (0.2-1)
[2023-03-11] MEDS: VITAMIN B COMP W-C 1 EA TABLET (NEPHRO-VITE) PO SCH (09:07)
[2023-03-11] MEDS: CALCIUM 500MG/VIT-D 200 UNITS COMBO TABLET (FP) PO SCH (09:07)
[2023-03-11] MEDS: FINASTERIDE 5 MG TABLET (FP) PO SCH (09:07)
[2023-03-11] MEDS: FAMOTIDINE 20 MG TABLET PO SCH (09:07)
[2023-03-12] MEDS: HEPARIN NA (PORCINE) 5,000 UNITS/ML 1ML VIAL SQ SCH ×2 (06:37→13:33)
[2023-03-12] MEDS: TAMSULOSIN HCL 0.4 MG CAP PO SCH (07:53)
[2023-03-12] MEDS: CALCIUM ACETATE 667 MG CAPSULE (FP) PO SCH ×3 (07:53→17:53)
[2023-03-12] MEDS: VITAMIN B COMP W-C 1 EA TABLET (NEPHRO-VITE) PO SCH (09:17)
[2023-03-12] MEDS: CALCIUM 500MG/VIT-D 200 UNITS COMBO TABLET (FP) PO SCH (09:17)
[2023-03-12] MEDS: FAMOTIDINE 20 MG TABLET PO SCH (09:17)
[2023-03-12] MEDS: FINASTERIDE 5 MG TABLET (FP) PO SCH (09:17)
[2023-03-12 16:12] VITALS: BP 137/59; PULSE 65; TEMP 98
== END 2023-03-12 17:54 | disposition home or self-care (01) | DRG 710 ==
LOC: JER 21:22 → JERBED 22:14 → JICU 02-12 01:55 → J6S 02-20 16:46
PROVIDERS: ADMIT Internal Medicine Pulmonary Disease; ATTEND Internal Medicine
PROC: 5A1945Z Respiratory Ventilation, 24-96 Consecutive Hours (ICD-10-PCS; 2023-02-11)
PROC: 0BH17EZ Insertion of Endotracheal Airway into Trachea, Via Natural or Artificial Opening (ICD-10-PCS; 2023-02-11)
PROC: 05HN33Z Insertion of Infusion Device into Left Internal Jugular Vein, Percutaneous Approach (ICD-10-PCS; 2023-02-11)
PROC: 0T9B70Z Drainage of Bladder with Drainage Device, Via Natural or Artificial Opening (ICD-10-PCS; 2023-03-07)
PROC: 0VT08ZZ Resection of Prostate, Via Natural or Artificial Opening Endoscopic (ICD-10-PCS; principal; 2023-03-07 13:00)
PROC: 0T7D8ZZ Dilation of Urethra, Via Natural or Artificial Opening Endoscopic (ICD-10-PCS; 2023-03-07 13:00)
DX: A40.9 Streptococcal sepsis, unspecified (principal); J96.01 Acute respiratory failure with hypoxia; J13 Pneumonia due to Streptococcus pneumoniae; J96.02 Acute respiratory failure with hypercapnia; N17.0 Acute kidney failure with tubular necrosis; R65.21 Severe sepsis with septic shock; D70.9 Neutropenia, unspecified; E16.2 Hypoglycemia, unspecified; G72.81 Critical illness myopathy; E87.5 Hyperkalemia; D64.9 Anemia, unspecified; E87.20 Acidosis, unspecified; N13.30 Unspecified hydronephrosis; R31.29 Other microscopic hematuria; D69.6 Thrombocytopenia, unspecified; I24.8 Other forms of acute ischemic heart disease; E87.6 Hypokalemia; R13.10 Dysphagia, unspecified; N18.9 Chronic kidney disease, unspecified; N32.0 Bladder-neck obstruction; N32.89 Other specified disorders of bladder; N32.3 Diverticulum of bladder
CPT/HCPCS: 0241U-QW; 36415; 36430; 36600; 70450-TC; 71045-TC-FY; 71250-TC; 74176-TC; 74220-TC-FY; 76775-TC; 76856-TC; 80048; 80053; 80061; 81003; 82272; 82550; 82553; 82784; 82803; 82962; 83036; 83516; 83520; 83605; 83735; 83880; 83883; 84100; 84155; 84165; 84300; 84484; 85025; 85027; 85384; 85610; 85730; 86022; 86038; 86160; 86225; 86256; 86480; 86850; 86900; 86901; 86922; 87040; 87070; 87081; 87086; 87186; 87205; 87340; 87389; 87493; 87517; 87522; 87899; 88300-TC; 88305-TC; 93005; 93010; 93306-TC; 94002; 94010; 94640; 94760; 94761; 97116-GP; 97162-GP; 99291; G0480; J1644; P9058

== ENCOUNTER 2023-05-09 17:42 | Inpatient (IN) | payer OTHER ==
[2023-05-09] MEDS ORDERED: SODIUM CHLORIDE 1,905 ML IV ONE (18:27)
[2023-05-09 19:18] LABS: BASO % 0.1 % (0-2.0); HEMATOCRIT 31.9 % (35.4-49); HEMOGLOBIN 9.7 GM/dL (11.7-16.9); LYMPH % 6.7 % (8-40); MCH 28.8 pg (25.7-33.7); MCHC 30.5 g/dl (32.0-35.9); MEAN CELL VOLUME 94.5 fl (80-96); MEAN PLT VOLUME 8.9 fl (7.5-11.1); MONO % 0.8 % (3.8-10.2); NEUT % 92.4 % (42.8-82.8); PLATELET COUNT 159 10^3/uL (134-434); RBC 3.37 M/mm3 (4.00-5.60); WHITE BLOOD COUNT 7.6 K/mm3 (4.0-10.0)
[2023-05-09 19:19] LABS: VENOUS BASE EXCESS -20.6 mmol/L (-2-2); VENOUS O2 SATURATION 20.2 % (70-80)
[2023-05-09 19:21] LABS: VENOUS PH 7.029 (7.310-7.410)
[2023-05-09 19:28] LABS: INR 1.17 (0.83-1.09); PROTHROMBIN TIME (PATIENT) 13.5 SEC (9.7-13.0)
[2023-05-09 19:30] LABS: ACTIVATED PTT 31.7 SECONDS (25.2-36.5)
[2023-05-09 19:54] LABS: BLOOD UREA NITROGEN 68.2 mg/dL (7-18); CALCIUM 8.5 mg/dL (8.5-10.1)
[2023-05-09 19:55] LABS: ALBUMIN 2.2 g/dl (3.4-5.0)
[2023-05-09 19:57] LABS: CREATININE 2.7 mg/dL (0.55-1.3)
[2023-05-09 19:58] LABS: TOT PROT 5.5 g/dl (6.4-8.2)
[2023-05-09 19:59] LABS: BILIRUBIN,TOTAL 0.8 mg/dL (0.2-1)
[2023-05-09 20:26] LABS: ANISOCYTOSIS 3+; MACROCYTOSIS 0; OVALOCYTE 1+; TOXIC GRANULATION 1+
[2023-05-09 21:01] LABS: ARTERIAL BLD GAS O2 SATURATION 99.8 % (95-98); ARTERIAL BLOOD GAS BASE EXCESS -14.5 mmol/L (-2-2); ARTERIAL BLOOD GAS PO2 365.8 mmHg (80-100); ARTERIAL BLOOD GAS pH 7.291 (7.350-7.450)
[2023-05-09] MEDS ORDERED: DEXTROSE 50%-WATER - 25 GM/50 ML VIAL IVPUSH ONE (21:08)
[2023-05-09 21:11] LABS: LACTIC ACID 12.3 mmol/L (0.4-2.0)
[2023-05-09] MEDS ORDERED: DEXTROSE 50%-WATER 25 GM/50 ML DISP.SYRIN ONE (21:11)
[2023-05-09 21:24] LABS: POTASSIUM 4.7 mmol/L (3.5-5.1)
[2023-05-09 21:25] LABS: CALCIUM 7.7 mg/dL (8.5-10.1)
[2023-05-09 21:29] LABS: CREATININE 2.4 mg/dL (0.55-1.3)
[2023-05-09 21:37] LABS: EPI CELLS 4 /uL (0-25.1); HYALINE CASTS 2 /uL (0-3.1); PH,URINE 5.5 (5.0-8.0); URINE APPEARANCE CLEAR; URINE BACTERIA 1193 /uL (0-1359); URINE BILIRUBIN NEGATIVE (NEGATIVE); URINE COLOR YELLOW; URINE GLUCOSE (UA) NEGATIVE (NEGATIVE); URINE KETONE TRACE (NEGATIVE); URINE LEUK ESTERASE 2+ (NEGATIVE); URINE NITRITE NEGATIVE (NEGATIVE); URINE PROTEIN 1+ (NEGATIVE); URINE UROBILINOGEN 0.2 mg/dL (0.2-1.0); URINE WBC 393 /uL (0-25.8)
[2023-05-09] MEDS ORDERED: VANCOMYCIN 1,000 MG in DEXTROSE 5%-WATER - 250 ML IVPB ONE (21:49)
[2023-05-09] MEDS ORDERED: PIPERACILLIN/TAZOBACTAM 4.5 GM VIAL IVPB ONE (21:49)
[2023-05-09] MEDS ORDERED: HEPARIN NA (PORCINE) 5,000 UNITS/ML 1ML VIAL IVPUSH ONE (21:50)
[2023-05-09] MEDS ORDERED: HEPARIN NA (PORCINE) 5,000 UNITS/ML 1ML VIAL IVPUSH PRN ×2 (21:51)
[2023-05-09] MEDS ORDERED: HEPARIN INFUSION - 25,000 UNITS/500 ML INFUS.BAG IVPB SCH (22:00)
[2023-05-09 22:02] LABS: URINE RBC 131.3 /uL (0-23.9)
[2023-05-09] MEDS ORDERED: VANCOMYCIN/WATER FOR INJ (PEG) 1,000 MG/200 ML BAG IVPB ONE (23:26)
[2023-05-09] MEDS ORDERED: PIPERACILLIN/TAZOB 4.5 GM 4.5 GM/100 ML BAG IVPB ONE (23:26)
[2023-05-09] MEDS ORDERED: HEPARIN NA (PORCINE) 5,000 UNITS/ML 1ML VIAL ONE (23:26)
[2023-05-09] MEDS ORDERED: HEPARIN INFUSION - 25,000 UNITS/500 ML INFUS.BAG IVPB ONE (23:27)
[2023-05-09] MEDS ORDERED: ACETAMINOPHEN 325 MG TABLET (FP) PO PRN (23:35)
[2023-05-10 01:32] LABS: LACTIC ACID 2.4 mmol/L (0.4-2.0)
[2023-05-10] MEDS: LACTATED RINGERS SOLUTION 1,000 ML/1,000 ML INFUS.BAG IV SCH (05:21)
[2023-05-10] MEDS ORDERED: DEXTROSE 50%-WATER 25 GM/50 ML DISP.SYRIN ONE (07:08)
[2023-05-10] MEDS ORDERED: DEXTROSE 50%-WATER 25 GM/50 ML DISP.SYRIN IVPUSH ONE (07:45)
[2023-05-10 07:52] LABS: HEMATOCRIT 23.9 % (35.4-49); HEMOGLOBIN 7.7 GM/dL (11.7-16.9); MCH 28.8 pg (25.7-33.7); MCHC 32.2 g/dl (32.0-35.9); MEAN CELL VOLUME 89.6 fl (80-96); MEAN PLT VOLUME 8.8 fl (7.5-11.1); PLATELET COUNT 94 10^3/uL (134-434); RBC 2.67 M/mm3 (4.00-5.60); RDW 17.9 % (11.9-15.9); WHITE BLOOD COUNT 10.7 K/mm3 (4.0-10.0)
[2023-05-10 07:55] LABS: INR 1.59 (0.83-1.09)
[2023-05-10 08:22] LABS: POTASSIUM 4.1 mmol/L (3.5-5.1)
[2023-05-10 08:32] LABS: ACTIVATED PTT > 400.0 SECONDS (25.2-36.5); CALCIUM 7.3 mg/dL (8.5-10.1)
[2023-05-10 08:33] LABS: ALBUMIN 1.8 g/dl (3.4-5.0); BLOOD UREA NITROGEN 66.4 mg/dL (7-18); MAGNESIUM 2.2 mg/dL (1.8-2.4)
[2023-05-10 08:36] LABS: CREATININE 2.5 mg/dL (0.55-1.3); PHOSPHOROUS 5.3 mg/dL (2.5-4.9)
[2023-05-10 08:37] LABS: TOT PROT 4.2 g/dl (6.4-8.2)
[2023-05-10 08:38] LABS: BILIRUBIN,TOTAL 0.4 mg/dL (0.2-1)
[2023-05-10] MEDS: TAMSULOSIN HCL 0.4 MG CAP PO SCH (09:10)
[2023-05-10] MEDS: FINASTERIDE 5 MG TABLET (FP) PO SCH (09:10)
[2023-05-10 09:25] LABS: ANISOCYTOSIS 0; MACROCYTOSIS 0
[2023-05-10] MEDS ORDERED: CEFTRIAXONE 1 GM in DEXTROSE 5%-WATER - 50 ML IVPB SCH (10:00)
[2023-05-10] MEDS: APIXABAN 5 MG TABLET PO SCH ×2 (13:53→21:16)
[2023-05-10] MEDS: MUPIROCIN 2% TOPICAL OINTMENT FOR DECOLONIZATION NS SCH ×2 (13:53→22:05)
[2023-05-10] MEDS ORDERED: VANCOMYCIN 750 MG in DEXTROSE 5%-WATER - 150 ML IVPB SCH (17:30)
[2023-05-10] MEDS ORDERED: VANCOMYCIN/WATER FOR INJ (PEG) 750 MG/150 ML BAG IVPB SCH (18:00)
[2023-05-10] MEDS: VANCOMYCIN ORAL SOLUTION 125 MG/2.5 ML PO SCH (18:35)
[2023-05-10] MEDS ORDERED: VANCOMYCIN 1 GM in D5W (PRE-DOCKED) 1,000 MG/250 ML (RESTRICTED TO ID ONLY IVPB SCH (20:15)
[2023-05-10] MEDS: CHLORHEXIDINE GLUCONATE 4% CLEANSER FOR DECOLONIZATION TP SCH (21:16)
[2023-05-11] MEDS: VANCOMYCIN ORAL SOLUTION 125 MG/2.5 ML PO SCH ×4 (01:24→17:34)
[2023-05-11 01:49] LABS: HEMATOCRIT 24.4 % (35.4-49); HEMOGLOBIN 7.9 GM/dL (11.7-16.9); MCH 28.7 pg (25.7-33.7); MCHC 32.3 g/dl (32.0-35.9); MEAN CELL VOLUME 88.9 fl (80-96); MEAN PLT VOLUME 8.3 fl (7.5-11.1); PLATELET COUNT 87 10^3/uL (134-434); RBC 2.74 M/mm3 (4.00-5.60); RDW 18.8 % (11.9-15.9); WHITE BLOOD COUNT 10.3 K/mm3 (4.0-10.0)
[2023-05-11] MEDS: LACTATED RINGERS SOLUTION 1,000 ML/1,000 ML INFUS.BAG IV SCH ×2 (05:11→22:14)
[2023-05-11 08:45] LABS: POTASSIUM 4.1 mmol/L (3.5-5.1)
[2023-05-11 08:48] LABS: BLOOD UREA NITROGEN 64.8 mg/dL (7-18)
[2023-05-11 08:51] LABS: PHOSPHOROUS 4.2 mg/dL (2.5-4.9)
[2023-05-11 08:52] LABS: ALBUMIN 1.7 g/dl (3.4-5.0)
[2023-05-11 08:53] LABS: BILIRUBIN,TOTAL 0.3 mg/dL (0.2-1); TOT PROT 4.1 g/dl (6.4-8.2)
[2023-05-11 08:55] LABS: CALCIUM 7.3 mg/dL (8.5-10.1)
[2023-05-11] MEDS: APIXABAN 5 MG TABLET PO SCH ×2 (09:43→22:14)
[2023-05-11] MEDS: TAMSULOSIN HCL 0.4 MG CAP PO SCH (11:42)
[2023-05-11] MEDS: FINASTERIDE 5 MG TABLET (FP) PO SCH (11:42)
[2023-05-11] MEDS: MUPIROCIN 2% TOPICAL OINTMENT FOR DECOLONIZATION NS SCH ×2 (11:50→22:13)
[2023-05-11] MEDS ORDERED: DEXTROSE 50%-WATER 25 GM/50 ML DISP.SYRIN IVPUSH PRN (13:16)
[2023-05-11] MEDS ORDERED: DEXTROSE 50%-WATER 25 GM/50 ML DISP.SYRIN IVPUSH ONE (13:30)
[2023-05-11 16:00] LABS: HEMATOCRIT 25.8 % (35.4-49); HEMOGLOBIN 8.1 GM/dL (11.7-16.9); MCHC 31.6 g/dl (32.0-35.9); MEAN CELL VOLUME 91.8 fl (80-96); MEAN PLT VOLUME 8.8 fl (7.5-11.1); PLATELET COUNT 90 10^3/uL (134-434); RBC 2.81 M/mm3 (4.00-5.60); RDW 18.6 % (11.9-15.9); WHITE BLOOD COUNT 8.8 K/mm3 (4.0-10.0)
[2023-05-11] MEDS: AMINO ACIDS/PROTEIN HYDROLYS 30 ML LIQUID.PKT PO SCH (17:34)
[2023-05-11] MEDS: CHLORHEXIDINE GLUCONATE 4% CLEANSER FOR DECOLONIZATION TP SCH (22:14)
[2023-05-11] MEDS: SODIUM BICARBONATE 650 MG TABLET PO SCH (22:14)
[2023-05-11] MEDS ORDERED: ACETAMINOPHEN 325 MG TABLET (FP) PO PRN (22:46)
[2023-05-12] MEDS: VANCOMYCIN ORAL SOLUTION 125 MG/2.5 ML PO SCH ×5 (00:15→23:09)
[2023-05-12 08:34] LABS: EOS % 0.5 % (0-4.5); HEMATOCRIT 23.7 % (35.4-49); HEMOGLOBIN 7.7 GM/dL (11.7-16.9); LYMPH % 9.8 % (8-40); MCH 28.5 pg (25.7-33.7); MCHC 32.3 g/dl (32.0-35.9); MEAN CELL VOLUME 88.2 fl (80-96); MEAN PLT VOLUME 8.1 fl (7.5-11.1); MONO % 3.4 % (3.8-10.2); NEUT % 86.3 % (42.8-82.8); PLATELET COUNT 76 10^3/uL (134-434); RBC 2.69 M/mm3 (4.00-5.60); RDW 18.5 % (11.9-15.9); WHITE BLOOD COUNT 6.9 K/mm3 (4.0-10.0)
[2023-05-12] MEDS: APIXABAN 5 MG TABLET PO SCH ×2 (09:39→22:21)
[2023-05-12] MEDS: TAMSULOSIN HCL 0.4 MG CAP PO SCH (09:39)
[2023-05-12] MEDS: FINASTERIDE 5 MG TABLET (FP) PO SCH (09:39)
[2023-05-12] MEDS: SODIUM BICARBONATE 650 MG TABLET PO SCH ×2 (09:39→22:21)
[2023-05-12] MEDS: ZINC SULFATE 220 MG CAPSULE (FP) PO SCH (09:39)
[2023-05-12] MEDS: MULTIVITAMINS (DAILY MVI) TABLET (FP) PO SCH (09:39)
[2023-05-12] MEDS: ASCORBIC ACID 500 MG TABLET (FP) PO SCH (09:40)
[2023-05-12] MEDS: AMINO ACIDS/PROTEIN HYDROLYS 30 ML LIQUID.PKT PO SCH ×2 (09:40→18:07)
[2023-05-12 10:28] LABS: CHLORIDE 107 mmol/L (98-107); POTASSIUM 4.4 mmol/L (3.5-5.1); SODIUM 135 mmol/L (136-145)
[2023-05-12 10:30] LABS: ALBUMIN 1.4 g/dl (3.4-5.0); ANION GAP 13 MMOL/L (8-16); BLOOD UREA NITROGEN 65.1 mg/dL (7-18); CO2 15 mmol/L (21-32); GLUCOSE,RANDOM 86 mg/dL (74-106)
[2023-05-12 10:33] LABS: CREATININE 3.1 mg/dL (0.55-1.3); SGOT/AST 33 U/L (15-37); SGPT/ALT 34 U/L (13-61)
[2023-05-12 10:35] LABS: BILIRUBIN,TOTAL 0.3 mg/dL (0.2-1); TOT PROT 3.7 g/dl (6.4-8.2)
[2023-05-12 10:37] LABS: ALK PHOS 171 U/L (45-117); CALCIUM 6.9 mg/dL (8.5-10.1)
[2023-05-12] MEDS: MUPIROCIN 2% TOPICAL OINTMENT FOR DECOLONIZATION NS SCH ×2 (10:41→22:23)
[2023-05-12] MEDS: LACTATED RINGERS SOLUTION 1,000 ML/1,000 ML INFUS.BAG IV SCH ×2 (12:42→22:24)
[2023-05-12] MEDS: CHLORHEXIDINE GLUCONATE 4% CLEANSER FOR DECOLONIZATION TP SCH (22:23)
[2023-05-13] MEDS: VANCOMYCIN ORAL SOLUTION 125 MG/2.5 ML PO SCH ×4 (07:00→23:15)
[2023-05-13] MEDS: MULTIVITAMINS (DAILY MVI) TABLET (FP) PO SCH (10:25)
[2023-05-13] MEDS: APIXABAN 5 MG TABLET PO SCH ×2 (10:25→21:49)
[2023-05-13] MEDS: FINASTERIDE 5 MG TABLET (FP) PO SCH (10:27)
[2023-05-13] MEDS: TAMSULOSIN HCL 0.4 MG CAP PO SCH (10:27)
[2023-05-13] MEDS: ASCORBIC ACID 500 MG TABLET (FP) PO SCH (10:27)
[2023-05-13] MEDS: ZINC SULFATE 220 MG CAPSULE (FP) PO SCH (10:27)
[2023-05-13] MEDS: AMINO ACIDS/PROTEIN HYDROLYS 30 ML LIQUID.PKT PO SCH ×2 (10:27→18:16)
[2023-05-13] MEDS: SODIUM BICARBONATE 650 MG TABLET PO SCH ×2 (10:27→21:49)
[2023-05-13] MEDS: MUPIROCIN 2% TOPICAL OINTMENT FOR DECOLONIZATION NS SCH ×2 (10:28→21:54)
[2023-05-13 11:39] LABS: BASO % 0.2 % (0-2.0); EOS % 0.2 % (0-4.5); HEMATOCRIT 22.8 % (35.4-49); HEMOGLOBIN 7.1 GM/dL (11.7-16.9); LYMPH % 7.9 % (8-40); MCH 28.6 pg (25.7-33.7); MCHC 31.1 g/dl (32.0-35.9); MEAN CELL VOLUME 92.2 fl (80-96); MEAN PLT VOLUME 9.1 fl (7.5-11.1); MONO % 3.4 % (3.8-10.2); NEUT % 88.3 % (42.8-82.8); PLATELET COUNT 68 10^3/uL (134-434); RBC 2.47 M/mm3 (4.00-5.60); WHITE BLOOD COUNT 5.1 K/mm3 (4.0-10.0)
[2023-05-13 11:57] LABS: CHLORIDE 109 mmol/L (98-107); POTASSIUM 4.3 mmol/L (3.5-5.1); SODIUM 136 mmol/L (136-145)
[2023-05-13 12:00] LABS: ANION GAP 14 MMOL/L (8-16); BLOOD UREA NITROGEN 51.8 mg/dL (7-18); CO2 13 mmol/L (21-32); GLUCOSE,RANDOM 71 mg/dL (74-106)
[2023-05-13 12:03] LABS: CREATININE 1.9 mg/dL (0.55-1.3); SGOT/AST 16 U/L (15-37); SGPT/ALT 21 U/L (13-61)
[2023-05-13 12:04] LABS: BILIRUBIN,TOTAL < 0.1 mg/dL (0.2-1); TOT PROT 2.4 g/dl (6.4-8.2)
[2023-05-13 12:21] LABS: ALBUMIN 0.9 g/dl (3.4-5.0); ALK PHOS 105 U/L (45-117)
[2023-05-13] MEDS: LACTATED RINGERS SOLUTION 1,000 ML/1,000 ML INFUS.BAG IV SCH ×2 (18:10→23:25)
[2023-05-13] MEDS: CHLORHEXIDINE GLUCONATE 4% CLEANSER FOR DECOLONIZATION TP SCH (22:32)
[2023-05-14] MEDS: VANCOMYCIN ORAL SOLUTION 125 MG/2.5 ML PO SCH ×3 (05:20→17:36)
[2023-05-14] MEDS: LACTATED RINGERS SOLUTION 1,000 ML/1,000 ML INFUS.BAG IV SCH ×3 (05:52→22:38)
[2023-05-14] MEDS: SODIUM BICARBONATE 650 MG TABLET PO SCH ×2 (09:49→21:29)
[2023-05-14] MEDS: MULTIVITAMINS (DAILY MVI) TABLET (FP) PO SCH (09:49)
[2023-05-14] MEDS: FINASTERIDE 5 MG TABLET (FP) PO SCH (09:49)
[2023-05-14] MEDS: ASCORBIC ACID 500 MG TABLET (FP) PO SCH (09:49)
[2023-05-14] MEDS: MUPIROCIN 2% TOPICAL OINTMENT FOR DECOLONIZATION NS SCH ×2 (09:50→21:27)
[2023-05-14] MEDS: ZINC SULFATE 220 MG CAPSULE (FP) PO SCH (09:50)
[2023-05-14] MEDS: APIXABAN 5 MG TABLET PO SCH ×2 (09:50→21:29)
[2023-05-14] MEDS: AMINO ACIDS/PROTEIN HYDROLYS 30 ML LIQUID.PKT PO SCH ×2 (09:50→17:36)
[2023-05-14] MEDS: TAMSULOSIN HCL 0.4 MG CAP PO SCH (09:50)
[2023-05-14 10:03] LABS: HEMATOCRIT 21.2 % (35.4-49); MCH 28.9 pg (25.7-33.7); MCHC 32.4 g/dl (32.0-35.9); MEAN CELL VOLUME 89.2 fl (80-96); MEAN PLT VOLUME 8.7 fl (7.5-11.1); PLATELET COUNT 88 10^3/uL (134-434); RBC 2.37 M/mm3 (4.00-5.60); RDW 18.4 % (11.9-15.9); WHITE BLOOD COUNT 5.4 K/mm3 (4.0-10.0)
[2023-05-14 10:09] LABS: HEMOGLOBIN 6.9 GM/dL (11.7-16.9)
[2023-05-14 10:24] LABS: POTASSIUM 4.6 mmol/L (3.5-5.1)
[2023-05-14 10:26] LABS: CALCIUM 7.1 mg/dL (8.5-10.1)
[2023-05-14 10:27] LABS: BLOOD UREA NITROGEN 74.7 mg/dL (7-18)
[2023-05-14 10:29] LABS: CREATININE 2.8 mg/dL (0.55-1.3)
[2023-05-14 10:31] LABS: BILIRUBIN,TOTAL 0.2 mg/dL (0.2-1); TOT PROT 3.5 g/dl (6.4-8.2)
[2023-05-14 10:37] LABS: ALBUMIN 1.3 g/dl (3.4-5.0)
[2023-05-14 20:56] LABS: BASO % 0.3 % (0-2.0); EOS % 0.7 % (0-4.5); HEMATOCRIT 26.2 % (35.4-49); HEMOGLOBIN 8.5 GM/dL (11.7-16.9); LYMPH % 11.2 % (8-40); MCH 28.2 pg (25.7-33.7); MCHC 32.4 g/dl (32.0-35.9); MEAN CELL VOLUME 87.2 fl (80-96); MEAN PLT VOLUME 8.3 fl (7.5-11.1); MONO % 3.8 % (3.8-10.2); PLATELET COUNT 100 10^3/uL (134-434); WHITE BLOOD COUNT 6.6 K/mm3 (4.0-10.0)
[2023-05-14] MEDS: CHLORHEXIDINE GLUCONATE 4% CLEANSER FOR DECOLONIZATION TP SCH (23:43)
[2023-05-15] MEDS: VANCOMYCIN ORAL SOLUTION 125 MG/2.5 ML PO SCH ×5 (00:38→23:05)
[2023-05-15] MEDS: ZINC SULFATE 220 MG CAPSULE (FP) PO SCH (09:30)
[2023-05-15] MEDS: MULTIVITAMINS (DAILY MVI) TABLET (FP) PO SCH (09:30)
[2023-05-15] MEDS: SODIUM BICARBONATE 650 MG TABLET PO SCH ×2 (09:30→22:58)
[2023-05-15] MEDS: FINASTERIDE 5 MG TABLET (FP) PO SCH (09:31)
[2023-05-15] MEDS: ASCORBIC ACID 500 MG TABLET (FP) PO SCH (09:31)
[2023-05-15] MEDS: APIXABAN 5 MG TABLET PO SCH ×2 (09:31→22:58)
[2023-05-15] MEDS: AMINO ACIDS/PROTEIN HYDROLYS 30 ML LIQUID.PKT PO SCH ×2 (09:31→17:15)
[2023-05-15] MEDS: TAMSULOSIN HCL 0.4 MG CAP PO SCH (09:31)
[2023-05-15 09:52] LABS: HEMATOCRIT 27.1 % (35.4-49); HEMOGLOBIN 8.9 GM/dL (11.7-16.9); MCH 29.1 pg (25.7-33.7); MCHC 32.8 g/dl (32.0-35.9); MEAN CELL VOLUME 88.6 fl (80-96); MEAN PLT VOLUME 8.6 fl (7.5-11.1); PLATELET COUNT 105 10^3/uL (134-434); RBC 3.06 M/mm3 (4.00-5.60); RDW 17.9 % (11.9-15.9); WHITE BLOOD COUNT 5.9 K/mm3 (4.0-10.0)
[2023-05-15 09:57] LABS: POTASSIUM 4.5 mmol/L (3.5-5.1)
[2023-05-15 10:08] LABS: CALCIUM 7.4 mg/dL (8.5-10.1)
[2023-05-15 10:09] LABS: ALBUMIN 1.4 g/dl (3.4-5.0); BLOOD UREA NITROGEN 77.5 mg/dL (7-18)
[2023-05-15 10:12] LABS: CREATININE 2.7 mg/dL (0.55-1.3)
[2023-05-15 10:13] LABS: BILIRUBIN,TOTAL 0.3 mg/dL (0.2-1); TOT PROT 3.9 g/dl (6.4-8.2)
[2023-05-15] MEDS: LACTATED RINGERS SOLUTION 1,000 ML/1,000 ML INFUS.BAG IV SCH ×2 (11:57→20:07)
[2023-05-15 13:20] LABS: MAGNESIUM 1.4 mg/dL (1.8-2.4)
[2023-05-15 13:23] LABS: PHOSPHOROUS 2.3 mg/dL (2.5-4.9)
[2023-05-15] MEDS ORDERED: SODIUM CHLORIDE 500 ML IV STA (13:30)
[2023-05-15 13:49] VITALS: BMI 20.5
[2023-05-15] MEDS ORDERED: NAPH,MB-DB/K PH,MBDB POWDER PACKET PO ONE (15:28)
[2023-05-15] MEDS: BANATROL PLUS POWDER PACKET PO SCH ×2 (16:29→22:58)
[2023-05-15] MEDS ORDERED: MAGNESIUM SULF 50% (8.12 MEQ/2 ML-1 GM VIAL) IVPB ONE (19:28)
[2023-05-16] MEDS: LACTATED RINGERS SOLUTION 1,000 ML/1,000 ML INFUS.BAG IV SCH (03:29)
[2023-05-16] MEDS: VANCOMYCIN ORAL SOLUTION 125 MG/2.5 ML PO SCH ×2 (06:22→12:17)
[2023-05-16] MEDS: BANATROL PLUS POWDER PACKET PO SCH ×3 (06:22→21:40)
[2023-05-16] MEDS: AMINO ACIDS/PROTEIN HYDROLYS 30 ML LIQUID.PKT PO SCH ×2 (07:55→18:13)
[2023-05-16] MEDS: TAMSULOSIN HCL 0.4 MG CAP PO SCH (07:55)
[2023-05-16] MEDS: MULTIVITAMINS (DAILY MVI) TABLET (FP) PO SCH (10:26)
[2023-05-16] MEDS: SODIUM BICARBONATE 650 MG TABLET PO SCH ×2 (10:26→21:40)
[2023-05-16] MEDS: FINASTERIDE 5 MG TABLET (FP) PO SCH (10:26)
[2023-05-16] MEDS: ASCORBIC ACID 500 MG TABLET (FP) PO SCH (10:26)
[2023-05-16] MEDS: APIXABAN 5 MG TABLET PO SCH (10:26)
[2023-05-16] MEDS: ZINC SULFATE 220 MG CAPSULE (FP) PO SCH (10:26)
[2023-05-16] MEDS: LACTOBACILLUS ACIDOPHILUS 1 TABLET PO SCH (10:26)
[2023-05-16 10:47] LABS: HEMATOCRIT 23.7 % (35.4-49); HEMOGLOBIN 7.9 GM/dL (11.7-16.9); MCH 29.1 pg (25.7-33.7); MCHC 33.1 g/dl (32.0-35.9); MEAN PLT VOLUME 7.6 fl (7.5-11.1); PLATELET COUNT 128 10^3/uL (134-434); RDW 18.4 % (11.9-15.9); WHITE BLOOD COUNT 6.3 K/mm3 (4.0-10.0)
[2023-05-16 11:23] LABS: CALCIUM 7.4 mg/dL (8.5-10.1)
[2023-05-16 11:24] LABS: ALBUMIN 1.4 g/dl (3.4-5.0)
[2023-05-16 11:25] LABS: BILIRUBIN,TOTAL 0.1 mg/dL (0.2-1)
[2023-05-16 11:26] LABS: TOT PROT 3.8 g/dl (6.4-8.2)
[2023-05-16 11:27] LABS: CREATININE 2.3 mg/dL (0.55-1.3)
[2023-05-16 11:30] LABS: BLOOD UREA NITROGEN 73.9 mg/dL (7-18)
[2023-05-16 12:48] LABS: MAGNESIUM 1.5 mg/dL (1.8-2.4)
[2023-05-16 12:50] LABS: PHOSPHOROUS 2.7 mg/dL (2.5-4.9)
[2023-05-16] MEDS ORDERED: MAGNESIUM SULF 50% (8.12 MEQ/2 ML-1 GM VIAL) IVPB ONE (14:07)
[2023-05-16] MEDS ORDERED: LACTATED RINGERS SOLUTION 1,000 ML/1,000 ML INFUS.BAG IV SCH (14:07)
[2023-05-16 14:21] LABS: RETICULOCYTES 1.34 % (0.5-1.5)
[2023-05-16 16:08] LABS: ATYPICAL pANCA <1:20 titer (Neg:<1:20); C-ANCA <1:20 titer (Neg:<1:20)
[2023-05-16] MEDS ORDERED: CEFTRIAXONE 1 GM in DEXTROSE 5%-WATER - 50 ML IVPB SCH (17:15)
[2023-05-16] MEDS ORDERED: ENOXAPARIN NA (PORCINE) 60 MG/0.6 ML DISP.SYRIN SQ SCH (18:00)
[2023-05-16] MEDS: VANCOMYCIN 250 MG/5 ML ORAL SOLUTION PO SCH (18:14)
[2023-05-17] MEDS: VANCOMYCIN 250 MG/5 ML ORAL SOLUTION PO SCH ×4 (00:29→17:04)
[2023-05-17] MEDS: BANATROL PLUS POWDER PACKET PO SCH ×3 (05:29→21:35)
[2023-05-17] MEDS: ENOXAPARIN NA (PORCINE) 60 MG/0.6 ML DISP.SYRIN SQ SCH (09:51)
[2023-05-17] MEDS: SODIUM BICARBONATE 650 MG TABLET PO SCH ×2 (09:51→21:35)
[2023-05-17] MEDS: AMINO ACIDS/PROTEIN HYDROLYS 30 ML LIQUID.PKT PO SCH ×2 (09:51→17:04)
[2023-05-17] MEDS: ASCORBIC ACID 500 MG TABLET (FP) PO SCH (09:51)
[2023-05-17] MEDS: FINASTERIDE 5 MG TABLET (FP) PO SCH (09:51)
[2023-05-17] MEDS: ZINC SULFATE 220 MG CAPSULE (FP) PO SCH (09:51)
[2023-05-17] MEDS: LACTOBACILLUS ACIDOPHILUS 1 TABLET PO SCH (09:51)
[2023-05-17] MEDS: TAMSULOSIN HCL 0.4 MG CAP PO SCH (09:52)
[2023-05-17] MEDS: MULTIVITAMINS (DAILY MVI) TABLET (FP) PO SCH (09:52)
[2023-05-17] MEDS ORDERED: APIXABAN 5 MG TABLET PO SCH (10:00)
[2023-05-17] MEDS ORDERED: PANTOPRAZOLE SODIUM 40 MG VIAL IVPUSH SCH (10:00)
[2023-05-17 10:14] LABS: POTASSIUM 5.2 mmol/L (3.5-5.1)
[2023-05-17 10:24] LABS: CALCIUM 7.6 mg/dL (8.5-10.1)
[2023-05-17 10:25] LABS: ALBUMIN 1.4 g/dl (3.4-5.0); BLOOD UREA NITROGEN 72.2 mg/dL (7-18)
[2023-05-17 10:28] LABS: CREATININE 2.2 mg/dL (0.55-1.3)
[2023-05-17 10:29] LABS: BILIRUBIN,TOTAL 0.4 mg/dL (0.2-1)
[2023-05-17 10:30] LABS: TOT PROT 3.8 g/dl (6.4-8.2)
[2023-05-17 10:37] LABS: HEMATOCRIT 22.3 % (35.4-49); HEMOGLOBIN 7.2 GM/dL (11.7-16.9); MCH 29.1 pg (25.7-33.7); MCHC 32.5 g/dl (32.0-35.9); MEAN CELL VOLUME 89.5 fl (80-96); MEAN PLT VOLUME 8.3 fl (7.5-11.1); PLATELET COUNT 153 10^3/uL (134-434); RBC 2.49 M/mm3 (4.00-5.60); RDW 18.7 % (11.9-15.9); WHITE BLOOD COUNT 6.7 K/mm3 (4.0-10.0)
[2023-05-17 10:39] LABS: N-TERMINAL BNP 3909.9 pg/ml (5-450)
[2023-05-17] MEDS ORDERED: SODIUM ZIRCONIUM CYCLOSILICATE (LOKELMA) 5 GM PACKET PO SCH (15:45)
[2023-05-17] MEDS: FAMOTIDINE 10 MG TABLET PO SCH (21:35)
[2023-05-18] MEDS: VANCOMYCIN 250 MG/5 ML ORAL SOLUTION PO SCH ×4 (00:44→19:04)
[2023-05-18] MEDS: BANATROL PLUS POWDER PACKET PO SCH ×3 (05:44→22:07)
[2023-05-18] MEDS ORDERED: FUROSEMIDE 40 MG/4 ML INJECTABLE VIAL IVPUSH ONE (08:00)
[2023-05-18] MEDS: TAMSULOSIN HCL 0.4 MG CAP PO SCH (08:07)
[2023-05-18] MEDS: AMINO ACIDS/PROTEIN HYDROLYS 30 ML LIQUID.PKT PO SCH ×3 (08:07→17:09)
[2023-05-18 09:28] LABS: HEMATOCRIT 21.5 % (35.4-49); MCH 29.2 pg (25.7-33.7); MCHC 32.2 g/dl (32.0-35.9); MEAN CELL VOLUME 90.9 fl (80-96); MEAN PLT VOLUME 8.1 fl (7.5-11.1); PLATELET COUNT 178 10^3/uL (134-434); RBC 2.36 M/mm3 (4.00-5.60); RDW 19.2 % (11.9-15.9); WHITE BLOOD COUNT 6.8 K/mm3 (4.0-10.0)
[2023-05-18 09:38] LABS: INR 1.06 (0.83-1.09); PROTHROMBIN TIME (PATIENT) 12.3 SEC (9.7-13.0)
[2023-05-18 09:42] LABS: HEMOGLOBIN 6.9 GM/dL (11.7-16.9)
[2023-05-18 09:51] LABS: POTASSIUM 5.2 mmol/L (3.5-5.1)
[2023-05-18 10:03] LABS: ALBUMIN 1.3 g/dl (3.4-5.0); BLOOD UREA NITROGEN 73.8 mg/dL (7-18)
[2023-05-18 10:05] LABS: CALCIUM 7.4 mg/dL (8.5-10.1); MAGNESIUM 1.6 mg/dL (1.8-2.4)
[2023-05-18 10:06] LABS: CREATININE 2.2 mg/dL (0.55-1.3)
[2023-05-18 10:07] LABS: BILIRUBIN,TOTAL 0.3 mg/dL (0.2-1)
[2023-05-18] MEDS: FINASTERIDE 5 MG TABLET (FP) PO SCH (13:08)
[2023-05-18] MEDS: FAMOTIDINE 10 MG TABLET PO SCH (13:08)
[2023-05-18] MEDS: MULTIVITAMINS (DAILY MVI) TABLET (FP) PO SCH (13:09)
[2023-05-18] MEDS: ZINC SULFATE 220 MG CAPSULE (FP) PO SCH (13:09)
[2023-05-18] MEDS: SODIUM BICARBONATE 650 MG TABLET PO SCH ×2 (13:09→22:07)
[2023-05-18] MEDS: LACTOBACILLUS ACIDOPHILUS 1 TABLET PO SCH (13:09)
[2023-05-18] MEDS: ASCORBIC ACID 500 MG TABLET (FP) PO SCH (13:09)
[2023-05-18] MEDS ORDERED: MAGNESIUM SULF 50% (8.12 MEQ/2 ML-1 GM VIAL) IVPB ONE ×2 (13:11→16:45)
[2023-05-18 15:51] LABS: POTASSIUM 4.6 mmol/L (3.5-5.1)
[2023-05-18 15:53] LABS: CALCIUM 7.5 mg/dL (8.5-10.1)
[2023-05-18 15:54] LABS: ALBUMIN 1.4 g/dl (3.4-5.0)
[2023-05-18 15:57] LABS: CREATININE 2.2 mg/dL (0.55-1.3)
[2023-05-18 15:59] LABS: BILIRUBIN,TOTAL 0.2 mg/dL (0.2-1)
[2023-05-19] MEDS: VANCOMYCIN 250 MG/5 ML ORAL SOLUTION PO SCH ×5 (01:22→23:31)
[2023-05-19] MEDS: BANATROL PLUS POWDER PACKET PO SCH ×3 (06:49→23:31)
[2023-05-19] MEDS: TAMSULOSIN HCL 0.4 MG CAP PO SCH (08:36)
[2023-05-19] MEDS: AMINO ACIDS/PROTEIN HYDROLYS 30 ML LIQUID.PKT PO SCH ×2 (08:36→17:33)
[2023-05-19 08:50] LABS: POTASSIUM 5.1 mmol/L (3.5-5.1)
[2023-05-19 08:56] LABS: ALBUMIN 1.4 g/dl (3.4-5.0); BLOOD UREA NITROGEN 75.2 mg/dL (7-18); CALCIUM 7.5 mg/dL (8.5-10.1); MAGNESIUM 1.9 mg/dL (1.8-2.4)
[2023-05-19 08:59] LABS: CREATININE 2.1 mg/dL (0.55-1.3); PHOSPHOROUS 3.6 mg/dL (2.5-4.9)
[2023-05-19 09:01] LABS: BILIRUBIN,TOTAL 0.3 mg/dL (0.2-1); TOT PROT 4.2 g/dl (6.4-8.2)
[2023-05-19 09:07] LABS: HEMATOCRIT 27.8 % (35.4-49); HEMOGLOBIN 9.3 GM/dL (11.7-16.9); MCH 29.9 pg (25.7-33.7); MCHC 33.4 g/dl (32.0-35.9); MEAN CELL VOLUME 89.5 fl (80-96); MEAN PLT VOLUME 7.8 fl (7.5-11.1); PLATELET COUNT 193 10^3/uL (134-434); RDW 17.3 % (11.9-15.9); WHITE BLOOD COUNT 8.5 K/mm3 (4.0-10.0)
[2023-05-19] MEDS: SODIUM BICARBONATE 650 MG TABLET PO SCH ×2 (10:39→23:31)
[2023-05-19] MEDS: ZINC SULFATE 220 MG CAPSULE (FP) PO SCH (10:39)
[2023-05-19] MEDS: LACTOBACILLUS ACIDOPHILUS 1 TABLET PO SCH (10:39)
[2023-05-19] MEDS: FAMOTIDINE 10 MG TABLET PO SCH (10:39)
[2023-05-19] MEDS: ASCORBIC ACID 500 MG TABLET (FP) PO SCH (10:39)
[2023-05-19] MEDS: FINASTERIDE 5 MG TABLET (FP) PO SCH (10:40)
[2023-05-19] MEDS: MULTIVITAMINS (DAILY MVI) TABLET (FP) PO SCH (10:40)
[2023-05-20] MEDS: BANATROL PLUS POWDER PACKET PO SCH ×3 (06:15→23:48)
[2023-05-20] MEDS: VANCOMYCIN 250 MG/5 ML ORAL SOLUTION PO SCH ×4 (06:15→23:54)
[2023-05-20 08:00] LABS: HEMATOCRIT 28.6 % (35.4-49); HEMOGLOBIN 9.3 GM/dL (11.7-16.9); MCH 29.5 pg (25.7-33.7); MCHC 32.6 g/dl (32.0-35.9); MEAN CELL VOLUME 90.6 fl (80-96); MEAN PLT VOLUME 7.2 fl (7.5-11.1); PLATELET COUNT 199 10^3/uL (134-434); RBC 3.16 M/mm3 (4.00-5.60); RDW 17.7 % (11.9-15.9)
[2023-05-20 08:19] LABS: ALBUMIN 1.4 g/dl (3.4-5.0); BLOOD UREA NITROGEN 67.9 mg/dL (7-18); CALCIUM 7.8 mg/dL (8.5-10.1)
[2023-05-20 08:22] LABS: CREATININE 1.9 mg/dL (0.55-1.3)
[2023-05-20 08:24] LABS: BILIRUBIN,TOTAL 0.5 mg/dL (0.2-1); TOT PROT 4.6 g/dl (6.4-8.2)
[2023-05-20] MEDS: SODIUM BICARBONATE 650 MG TABLET PO SCH ×2 (10:12→23:50)
[2023-05-20] MEDS: ASCORBIC ACID 500 MG TABLET (FP) PO SCH (10:12)
[2023-05-20] MEDS: ZINC SULFATE 220 MG CAPSULE (FP) PO SCH (10:12)
[2023-05-20] MEDS: MULTIVITAMINS (DAILY MVI) TABLET (FP) PO SCH (10:12)
[2023-05-20] MEDS: FAMOTIDINE 10 MG TABLET PO SCH (10:12)
[2023-05-20] MEDS: FINASTERIDE 5 MG TABLET (FP) PO SCH (10:12)
[2023-05-20] MEDS: LACTOBACILLUS ACIDOPHILUS 1 TABLET PO SCH (10:12)
[2023-05-20] MEDS: TAMSULOSIN HCL 0.4 MG CAP PO SCH (10:12)
[2023-05-20] MEDS: AMINO ACIDS/PROTEIN HYDROLYS 30 ML LIQUID.PKT PO SCH ×2 (10:12→18:05)
[2023-05-21] MEDS: BANATROL PLUS POWDER PACKET PO SCH ×3 (07:24→22:42)
[2023-05-21] MEDS: VANCOMYCIN 250 MG/5 ML ORAL SOLUTION PO SCH ×4 (07:24→23:20)
[2023-05-21] MEDS: TAMSULOSIN HCL 0.4 MG CAP PO SCH (08:34)
[2023-05-21] MEDS: AMINO ACIDS/PROTEIN HYDROLYS 30 ML LIQUID.PKT PO SCH (08:34)
[2023-05-21] MEDS: ASCORBIC ACID 500 MG TABLET (FP) PO SCH (10:19)
[2023-05-21] MEDS: ZINC SULFATE 220 MG CAPSULE (FP) PO SCH (10:19)
[2023-05-21] MEDS: FINASTERIDE 5 MG TABLET (FP) PO SCH (10:19)
[2023-05-21] MEDS: MULTIVITAMINS (DAILY MVI) TABLET (FP) PO SCH (10:19)
[2023-05-21] MEDS: LACTOBACILLUS ACIDOPHILUS 1 TABLET PO SCH (10:19)
[2023-05-21] MEDS: SODIUM BICARBONATE 650 MG TABLET PO SCH ×2 (10:19→22:42)
[2023-05-21] MEDS: FAMOTIDINE 10 MG TABLET PO SCH (10:19)
[2023-05-21] MEDS ORDERED: INSULIN (NOVOLOG) ASPART 100 UNITS/ML 10ML VIAL ONE (20:55)
[2023-05-22] MEDS: VANCOMYCIN 250 MG/5 ML ORAL SOLUTION PO SCH ×3 (06:52→18:54)
[2023-05-22] MEDS: BANATROL PLUS POWDER PACKET PO SCH ×3 (06:52→22:27)
[2023-05-22 08:12] LABS: BASO % 1.2 % (0-2.0); EOS % 2.2 % (0-4.5); HEMATOCRIT 27.2 % (35.4-49); LYMPH % 13.6 % (8-40); MCH 29.8 pg (25.7-33.7); MEAN CELL VOLUME 90.5 fl (80-96); MEAN PLT VOLUME 7.4 fl (7.5-11.1); MONO % 4.1 % (3.8-10.2); NEUT % 78.9 % (42.8-82.8); PLATELET COUNT 217 10^3/uL (134-434); RBC 3.01 M/mm3 (4.00-5.60); RDW 18.4 % (11.9-15.9); WHITE BLOOD COUNT 5.8 K/mm3 (4.0-10.0)
[2023-05-22 08:15] LABS: INR 1.11 (0.83-1.09); PROTHROMBIN TIME (PATIENT) 12.9 SEC (9.7-13.0)
[2023-05-22] MEDS ORDERED: INSULIN (NOVOLOG) ASPART 100 UNITS/ML 10ML VIAL ONE (08:24)
[2023-05-22 08:28] LABS: POTASSIUM 4.8 mmol/L (3.5-5.1)
[2023-05-22 08:32] LABS: ALBUMIN 1.3 g/dl (3.4-5.0); BLOOD UREA NITROGEN 56.4 mg/dL (7-18); CALCIUM 7.5 mg/dL (8.5-10.1)
[2023-05-22 08:35] LABS: CREATININE 1.5 mg/dL (0.55-1.3)
[2023-05-22 08:36] LABS: BILIRUBIN,TOTAL 0.2 mg/dL (0.2-1); TOT PROT 4.2 g/dl (6.4-8.2)
[2023-05-22] MEDS: TAMSULOSIN HCL 0.4 MG CAP PO SCH (08:40)
[2023-05-22] MEDS ORDERED: PEG 3350/NA SULF BICARB CL/KCL 4000 ML SOLN.RECON PO ONE (10:00)
[2023-05-22] MEDS: FAMOTIDINE 10 MG TABLET PO SCH (10:24)
[2023-05-22] MEDS: ZINC SULFATE 220 MG CAPSULE (FP) PO SCH (10:25)
[2023-05-22] MEDS: SODIUM BICARBONATE 650 MG TABLET PO SCH ×2 (10:25→22:27)
[2023-05-22] MEDS: MULTIVITAMINS (DAILY MVI) TABLET (FP) PO SCH (10:25)
[2023-05-22] MEDS: FINASTERIDE 5 MG TABLET (FP) PO SCH (10:25)
[2023-05-22] MEDS: ASCORBIC ACID 500 MG TABLET (FP) PO SCH (10:25)
[2023-05-22] MEDS: LACTOBACILLUS ACIDOPHILUS 1 TABLET PO SCH (10:28)
[2023-05-22] MEDS ORDERED: BISACODYL 5 MG TABLET.DR (FP) PO ONE ×2 (20:00→22:30)
[2023-05-23] MEDS: VANCOMYCIN 250 MG/5 ML ORAL SOLUTION PO SCH ×5 (00:44→23:04)
[2023-05-23] MEDS: BANATROL PLUS POWDER PACKET PO SCH ×3 (06:46→22:46)
[2023-05-23] MEDS: SODIUM BICARBONATE 650 MG TABLET PO SCH ×2 (09:00→22:46)
[2023-05-23] MEDS: LACTOBACILLUS ACIDOPHILUS 1 TABLET PO SCH (09:00)
[2023-05-23] MEDS: FAMOTIDINE 10 MG TABLET PO SCH (09:01)
[2023-05-23] MEDS: MULTIVITAMINS (DAILY MVI) TABLET (FP) PO SCH (09:01)
[2023-05-23] MEDS: TAMSULOSIN HCL 0.4 MG CAP PO SCH (09:01)
[2023-05-23] MEDS: FINASTERIDE 5 MG TABLET (FP) PO SCH (09:01)
[2023-05-23] MEDS: ZINC SULFATE 220 MG CAPSULE (FP) PO SCH (09:01)
[2023-05-23] MEDS: ASCORBIC ACID 500 MG TABLET (FP) PO SCH (09:01)
[2023-05-23 09:27] LABS: BASO % 1.2 % (0-2.0); EOS % 2.6 % (0-4.5); HEMATOCRIT 30.3 % (35.4-49); HEMOGLOBIN 10.2 GM/dL (11.7-16.9); LYMPH % 19.1 % (8-40); MCHC 33.6 g/dl (32.0-35.9); MEAN CELL VOLUME 89.2 fl (80-96); MEAN PLT VOLUME 6.8 fl (7.5-11.1); MONO % 5.6 % (3.8-10.2); NEUT % 71.5 % (42.8-82.8); PLATELET COUNT 231 10^3/uL (134-434); WHITE BLOOD COUNT 5.1 K/mm3 (4.0-10.0)
[2023-05-23 09:34] LABS: INR 1.14 (0.83-1.09); PROTHROMBIN TIME (PATIENT) 13.2 SEC (9.7-13.0)
[2023-05-23 10:22] LABS: POTASSIUM 4.8 mmol/L (3.5-5.1)
[2023-05-23 10:36] LABS: BLOOD UREA NITROGEN 37.7 mg/dL (7-18)
[2023-05-23 10:37] LABS: ALBUMIN 1.3 g/dl (3.4-5.0); CALCIUM 7.9 mg/dL (8.5-10.1)
[2023-05-23 10:39] LABS: BILIRUBIN,TOTAL 0.3 mg/dL (0.2-1); CREATININE 1.3 mg/dL (0.55-1.3); TOT PROT 4.4 g/dl (6.4-8.2)
[2023-05-24] MEDS: BANATROL PLUS POWDER PACKET PO SCH (06:22)
[2023-05-24] MEDS: VANCOMYCIN 250 MG/5 ML ORAL SOLUTION PO SCH ×2 (06:22→11:25)
[2023-05-24 08:15] LABS: HEMATOCRIT 27.9 % (35.4-49); HEMOGLOBIN 9.5 GM/dL (11.7-16.9); MCH 30.8 pg (25.7-33.7); MCHC 34.2 g/dl (32.0-35.9); MEAN CELL VOLUME 90.2 fl (80-96); MEAN PLT VOLUME 7.5 fl (7.5-11.1); PLATELET COUNT 270 10^3/uL (134-434); RBC 3.09 M/mm3 (4.00-5.60); RDW 18.6 % (11.9-15.9)
[2023-05-24 08:32] LABS: POTASSIUM 4.5 mmol/L (3.5-5.1)
[2023-05-24 08:33] LABS: CALCIUM 7.8 mg/dL (8.5-10.1)
[2023-05-24 08:34] LABS: BLOOD UREA NITROGEN 32.7 mg/dL (7-18)
[2023-05-24 08:37] LABS: CREATININE 1.4 mg/dL (0.55-1.3)
[2023-05-24] MEDS: FINASTERIDE 5 MG TABLET (FP) PO SCH (10:04)
[2023-05-24] MEDS: ZINC SULFATE 220 MG CAPSULE (FP) PO SCH (10:04)
[2023-05-24] MEDS: MULTIVITAMINS (DAILY MVI) TABLET (FP) PO SCH (10:04)
[2023-05-24] MEDS: FAMOTIDINE 10 MG TABLET PO SCH (10:04)
[2023-05-24] MEDS: SODIUM BICARBONATE 650 MG TABLET PO SCH (10:04)
[2023-05-24] MEDS: TAMSULOSIN HCL 0.4 MG CAP PO SCH (10:04)
[2023-05-24] MEDS: LACTOBACILLUS ACIDOPHILUS 1 TABLET PO SCH (10:04)
[2023-05-24] MEDS: ASCORBIC ACID 500 MG TABLET (FP) PO SCH (10:05)
[2023-05-24] MEDS: ENOXAPARIN NA (PORCINE) 60 MG/0.6 ML DISP.SYRIN SQ SCH (10:06)
[2023-05-24 12:54] VITALS: BP 125/64; PULSE 79; RESP 18; TEMP 98
[2023-05-24 21:09] LABS: FATS, NEUTRAL Increased (.)
== END 2023-05-24 11:55 | disposition home or self-care (01) | DRG 720 ==
LOC: JER 17:42 → JERBED 22:35 → JICU 05-10 01:15 → J5S 05-12 00:06 → J7W 05-18 14:38
PROVIDERS: ADMIT Internal Medicine Pulmonary Disease; ATTEND Internal Medicine
PROC: 06HM33Z Insertion of Infusion Device into Right Femoral Vein, Percutaneous Approach (ICD-10-PCS; principal; 2023-05-09)
PROC: 30233N1 Transfusion of Nonautologous Red Blood Cells into Peripheral Vein, Percutaneous Approach (ICD-10-PCS; 2023-05-14)
PROC: 0DB98ZX Excision of Duodenum, Via Natural or Artificial Opening Endoscopic, Diagnostic (ICD-10-PCS; 2023-05-23)
PROC: 0DB68ZX Excision of Stomach, Via Natural or Artificial Opening Endoscopic, Diagnostic (ICD-10-PCS; 2023-05-23)
PROC: 0DB58ZX Excision of Esophagus, Via Natural or Artificial Opening Endoscopic, Diagnostic (ICD-10-PCS; 2023-05-23)
PROC: 0DBL8ZX Excision of Transverse Colon, Via Natural or Artificial Opening Endoscopic, Diagnostic (ICD-10-PCS; 2023-05-23)
PROC: 0DBM8ZX Excision of Descending Colon, Via Natural or Artificial Opening Endoscopic, Diagnostic (ICD-10-PCS; 2023-05-23)
DX: A41.89 Other specified sepsis (principal); R65.21 Severe sepsis with septic shock; J96.01 Acute respiratory failure with hypoxia; I82.431 Acute embolism and thrombosis of right popliteal vein; E87.20 Acidosis, unspecified; N40.0 Benign prostatic hyperplasia without lower urinary tract symptoms; R64 Cachexia; Z68.20 Body mass index [BMI] 20.0-20.9, adult; N39.0 Urinary tract infection, site not specified; B95.2 Enterococcus as the cause of diseases classified elsewhere; M62.82 Rhabdomyolysis; N18.9 Chronic kidney disease, unspecified; A04.72 Enterocolitis due to Clostridium difficile, not specified as recurrent; R63.4 Abnormal weight loss; D69.6 Thrombocytopenia, unspecified; K29.70 Gastritis, unspecified, without bleeding; D64.9 Anemia, unspecified; E43 Unspecified severe protein-calorie malnutrition; N17.9 Acute kidney failure, unspecified; R31.29 Other microscopic hematuria; N13.39 Other hydronephrosis; E87.5 Hyperkalemia; R94.5 Abnormal results of liver function studies; E86.1 Hypovolemia; R18.8 Other ascites; W18.39XA Other fall on same level, initial encounter; Y92.098 Other place in other non-institutional residence as the place of occurrence of the external cause; K64.8 Other hemorrhoids
CPT/HCPCS: 0241U-QW; 36415; 36430; 36600; 37191; 70450-TC; 71045-TC-FY; 71275-TC; 72125-TC; 72170-TC-FY; 74176-TC; 76700-TC; 80048; 80053; 81003; 82272; 82436; 82550; 82553; 82607; 82705; 82710; 82728; 82746; 82803; 82962; 83010; 83520; 83540; 83550; 83605; 83615; 83735; 83880; 84100; 84133; 84300; 84484; 85025; 85027; 85045; 85379; 85520; 85610; 85730; 86022; 86256; 86704; 86708; 86709; 86803; 86850; 86900; 86901; 86922; 87040; 87077; 87081; 87086; 87186; 87324; 87340; 87449; 87517; 88305-TC; 93005; 93010; 93306-TC; 93970-TC; 97116-GP; 97162-GP; 99291; J1644; P9058